=== PATIENT | male | born 1945 | race Caucasian/White ===

== ENCOUNTER 2017-07-20 00:39 | Day surgery (SDC) | payer OTHER, SELFPAY ==
[~2017-07-20 00:39] MED LIST: ? HTN MED; ALLERCLEAR10 MG PO; AMLO10 PO; ASPI81CH PO; ATOR40TA PO; CLARITIN5 MG PO; CYAN500 SL; Ceftriaxone2 G2 IV; Colace100 MG PO; Cyclobenzaprine5 MG PO; DIGO.25 PO; HYDACE5 PO; INCRUSE ELLI62.5 MCG; LAVAP17G PO; LISI5 PO; METO100ER PO; METO50ER PO; NAPR500 PO; NEBI5 PO; NITR.4SL SL; OMEP40CA12 PO; OXYACE5T PO; PANT40 PO; POLYETHYLENE GLY1 GM PO; Rocephin 1g1 G/50 ML; SENN187 PO; SULTRIDS PO; TORSE20 PO; TRAZ50 PO; VANCO 1.51.5 GM/150 IV; WARF2.5 PO
[2017-07-20] MEDS ORDERED: LISI5 PO (10:04)
[2018-07-07] MEDS ORDERED: LISI5 PO (16:19)
== END 2017-07-20 09:50 | disposition home or self-care (01) ==
LOC: ATC 00:39
DX: I95.9 Hypotension, unspecified (principal); I38 Endocarditis, valve unspecified; R53.1 Weakness; R50.9 Fever, unspecified; G47.30 Sleep apnea, unspecified; E66.01 Morbid (severe) obesity due to excess calories; I48.0 Paroxysmal atrial fibrillation; Z79.01 Long term (current) use of anticoagulants; M54.2 Cervicalgia; E78.5 Hyperlipidemia, unspecified; I10 Essential (primary) hypertension
CPT/HCPCS: 99211

== ENCOUNTER 2017-08-03 00:53 | Day surgery (SDC) | payer OTHER, SELFPAY ==
[2018-07-07] MEDS ORDERED: LISI5 PO (16:19)
== END 2017-08-03 10:10 | disposition home or self-care (01) ==
LOC: ATC 00:53
DX: Z45.2 Encounter for adjustment and management of vascular access device (principal); I38 Endocarditis, valve unspecified; I10 Essential (primary) hypertension
CPT/HCPCS: 99211

== ENCOUNTER 2017-08-10 00:27 | Day surgery (SDC) | payer OTHER, SELFPAY ==
[2017-08-10] MEDS ORDERED: METO50ER PO (10:39)
[2018-07-07] MEDS ORDERED: LISI5 PO (16:19)
== END 2017-08-10 10:16 | disposition home or self-care (01) ==
LOC: ATC 00:27
DX: Z45.2 Encounter for adjustment and management of vascular access device (principal); I10 Essential (primary) hypertension; I38 Endocarditis, valve unspecified; E78.5 Hyperlipidemia, unspecified; G47.33 Obstructive sleep apnea (adult) (pediatric); E66.01 Morbid (severe) obesity due to excess calories; I48.0 Paroxysmal atrial fibrillation
CPT/HCPCS: 99211

== ENCOUNTER 2017-11-30 13:38 | Inpatient (IN) | payer OTHER, SELFPAY ==
[~2017-11-30] VITALS: Ht 185.4 cm; Wt 159.7 kg
[2017-11-30] MEDS ORDERED: AMLO5 PO (13:56)
[2017-11-30 14:17] LABS: BASOPHILS ABSOLUTE AUTO 0.05 K/mm3 (0.00-0.23); BASOPHILS PERCENT AUTO 1 % (0-2); EOSINOPHILS ABSOLUTE AUTO 0.07 K/mm3 (0.00-0.68); EOSINOPHILS PERCENT AUTO 1 % (0-6); Hematocrit 38.2 % (37.0-53.0); Hemoglobin 12.2 g/dL (13.5-17.5); IMMATURE GRAN ABSOLUTE AUTO 0.07 K/mm3 (0.00-0.10); IMMATURE GRAN PERCENT AUTO 1 % (0-1); LYMPHOCYTES ABSOLUTE AUTO 2.09 K/mm3 (0.84-5.20); LYMPHOCYTES PERCENT AUTO 21 % (21-46); MONOCYTES ABSOLUTE AUTO 0.76 K/mm3 (0.16-1.47); MONOCYTES PERCENT AUTO 8 % (4-13); Mean Corpuscular HGB 29.5 pg (26.0-34.0); Mean Corpuscular HGB Conc 31.9 g/dL (31.5-36.5); Mean Corpuscular Volume 93 fL (80-100); Mean Platelet Volume 10.3 fL (9.1-12.4); NEUTROPHILS ABSOLUTE AUTO 6.77 K/mm3 (1.96-9.15); NEUTROPHILS PERCENT AUTO 69 % (41-73); Platelet Count 273 K/mm3 (150-400); RDW Coefficient Variation 13.9 % (11.7-14.2); RDW Standard Deviation 47.3 fL (35.1-46.3); Red Blood Cell Count 4.13 M/mm3 (4.30-5.90); White Blood Cell Count 9.81 K/mm3 (4.00-11.30)
[2017-11-30 14:30] LABS: Anion Gap 5 mmol/L (6-16); Blood Urea Nitrogen 17 mg/dL (8-24); CO2, Blood 24 mmol/L (21-32); Chloride, Blood 110 mmol/L (98-108); Creatinine, Blood 1.06 mg/dL (0.60-1.20); Glomerular Filtration Rate >60 (60-); Glucose, Blood 109 mg/dL (70-99); Magnesium, Blood 2.3 mg/dL (1.6-2.4); Potassium, Blood 5.1 mmol/L (3.5-5.5); Sodium, Blood 139 mmol/L (136-145)
[2017-11-30 16:03] LABS: Troponin I <0.015 ng/mL (0.000-0.040)
[2017-11-30 16:07] LABS: International Normalized Ratio 1.65; Prothrombin Time Results 17.4 Sec (9.7-11.5)
[2017-11-30] MEDS ORDERED: TORSE20 PO (22:10)
[2017-11-30] MEDS ORDERED: ALBU2.5V5 NEB (22:12)
[2017-11-30] MEDS ORDERED: ALBU90OI6 INH (22:13)
[2017-11-30] MEDS ORDERED: Hair, Skin & N1 EACH PO (22:13)
[2017-12-01 04:38] LABS: BASOPHILS ABSOLUTE AUTO 0.06 K/mm3 (0.00-0.23); BASOPHILS PERCENT AUTO 1 % (0-2); EOSINOPHILS ABSOLUTE AUTO 0.08 K/mm3 (0.00-0.68); EOSINOPHILS PERCENT AUTO 1 % (0-6); Hematocrit 35.8 % (37.0-53.0); Hemoglobin 11.6 g/dL (13.5-17.5); IMMATURE GRAN ABSOLUTE AUTO 0.09 K/mm3 (0.00-0.10); IMMATURE GRAN PERCENT AUTO 1 % (0-1); LYMPHOCYTES ABSOLUTE AUTO 2.54 K/mm3 (0.84-5.20); LYMPHOCYTES PERCENT AUTO 23 % (21-46); MONOCYTES ABSOLUTE AUTO 0.96 K/mm3 (0.16-1.47); MONOCYTES PERCENT AUTO 9 % (4-13); Mean Corpuscular HGB 29.7 pg (26.0-34.0); Mean Corpuscular HGB Conc 32.4 g/dL (31.5-36.5); Mean Corpuscular Volume 92 fL (80-100); Mean Platelet Volume 10.1 fL (9.1-12.4); NEUTROPHILS ABSOLUTE AUTO 7.51 K/mm3 (1.96-9.15); NEUTROPHILS PERCENT AUTO 67 % (41-73); Platelet Count 278 K/mm3 (150-400); RDW Coefficient Variation 13.9 % (11.7-14.2); RDW Standard Deviation 46.6 fL (35.1-46.3); White Blood Cell Count 11.24 K/mm3 (4.00-11.30)
[2017-12-01 04:53] LABS: International Normalized Ratio 1.65; Prothrombin Time Results 17.4 Sec (9.7-11.5)
[2017-12-01 04:57] LABS: Albumin, Blood 3.2 g/dL (3.4-5.0); Anion Gap 6 mmol/L (6-16); Blood Urea Nitrogen 17 mg/dL (8-24); Bun/Creatinine Ratio 15.9 (12.0-20.0); CO2, Blood 27 mmol/L (21-32); Calcium, Blood 8.7 mg/dL (8.5-10.1); Chloride, Blood 109 mmol/L (98-108); Creatinine, Blood 1.07 mg/dL (0.60-1.20); Glomerular Filtration Rate >60 (60-); Glucose, Blood 84 mg/dL (70-99); Potassium, Blood 3.9 mmol/L (3.5-5.5); Sodium, Blood 142 mmol/L (136-145)
[2017-12-02] MEDS ORDERED: Coumadin6 MG PO (19:24)
[2017-12-02] MEDS ORDERED: TRAZ50 PO (20:46)
== END 2017-12-01 12:55 | disposition home or self-care (01) | DRG 309 ==
LOC: ER 13:38 → PCU 15:52
PROVIDERS: Emergency Medicine; Family Medicine
DX: I48.91 Unspecified atrial fibrillation (principal); Z68.42 Body mass index [BMI] 45.0-49.9, adult; I25.10 Atherosclerotic heart disease of native coronary artery without angina pectoris; I10 Essential (primary) hypertension; E78.5 Hyperlipidemia, unspecified; G47.33 Obstructive sleep apnea (adult) (pediatric); E66.01 Morbid (severe) obesity due to excess calories; J44.9 Chronic obstructive pulmonary disease, unspecified; K21.9 Gastro-esophageal reflux disease without esophagitis; M17.0 Bilateral primary osteoarthritis of knee; M19.012 Primary osteoarthritis, left shoulder; M19.011 Primary osteoarthritis, right shoulder; Z79.01 Long term (current) use of anticoagulants; Z79.82 Long term (current) use of aspirin; Z95.1 Presence of aortocoronary bypass graft; Z95.3 Presence of xenogenic heart valve; Z87.891 Personal history of nicotine dependence; Z79.899 Other long term (current) drug therapy; Z88.0 Allergy status to penicillin
CPT/HCPCS: 36415; 71046; 80048; 80069; 83735; 84484; 85025; 85610; 93005; 93010; 94640; 94760; 96365; 96366; 96375; 99285

== ENCOUNTER 2017-12-02 19:03 | Inpatient (IN) | payer OTHER, SELFPAY ==
[~2017-12-02] VITALS: Ht 185.4 cm; Wt 150.6 kg
[~2017-12-02 19:03] MED LIST changes: +ALBU2.5V5 NEB; +ALBU90OI6 INH; +AMLO5 PO; +Hair, Skin & N1 EACH PO
[2017-12-02] MEDS ORDERED: Coumadin6 MG PO (19:24)
[2017-12-02 19:37] LABS: BASOPHILS ABSOLUTE AUTO 0.05 K/mm3 (0.00-0.23); BASOPHILS PERCENT AUTO 0 % (0-2); EOSINOPHILS ABSOLUTE AUTO 0.07 K/mm3 (0.00-0.68); EOSINOPHILS PERCENT AUTO 1 % (0-6); Hematocrit 37.8 % (37.0-53.0); Hemoglobin 12.2 g/dL (13.5-17.5); IMMATURE GRAN ABSOLUTE AUTO 0.08 K/mm3 (0.00-0.10); IMMATURE GRAN PERCENT AUTO 1 % (0-1); LYMPHOCYTES ABSOLUTE AUTO 2.76 K/mm3 (0.84-5.20); LYMPHOCYTES PERCENT AUTO 24 % (21-46); MONOCYTES ABSOLUTE AUTO 1.02 K/mm3 (0.16-1.47); MONOCYTES PERCENT AUTO 9 % (4-13); Mean Corpuscular HGB Conc 32.3 g/dL (31.5-36.5); Mean Corpuscular Volume 93 fL (80-100); Mean Platelet Volume 9.8 fL (9.1-12.4); NEUTROPHILS ABSOLUTE AUTO 7.67 K/mm3 (1.96-9.15); NEUTROPHILS PERCENT AUTO 66 % (41-73); Platelet Count 295 K/mm3 (150-400); RDW Coefficient Variation 13.8 % (11.7-14.2); Red Blood Cell Count 4.06 M/mm3 (4.30-5.90); White Blood Cell Count 11.65 K/mm3 (4.00-11.30)
[2017-12-02 19:48] LABS: Alanine Aminotransfer (ALT/SGP 28 U/L (12-78); Albumin, Blood 3.5 g/dL (3.4-5.0); Albumin/Globulin Ratio 0.8 (0.8-1.8); Alk Phos 103 U/L (50-136); Anion Gap 8 mmol/L (6-16); Aspartate Aminotrans (AST/SGOT 31 U/L (12-37); Bilirubin, Total 0.4 mg/dL (0.1-1.0); Blood Urea Nitrogen 14 mg/dL (8-24); Bun/Creatinine Ratio 13.6 (12.0-20.0); CO2, Blood 24 mmol/L (21-32); Calcium, Blood 8.4 mg/dL (8.5-10.1); Chloride, Blood 109 mmol/L (98-108); Creatinine, Blood 1.03 mg/dL (0.60-1.20); Globulin, Blood 4.4 g/dL (2.2-4.0); Glomerular Filtration Rate >60 (60-); Glucose, Blood 123 mg/dL (70-99); Magnesium, Blood 2.2 mg/dL (1.6-2.4); Potassium, Blood 4.1 mmol/L (3.5-5.5); Sodium, Blood 141 mmol/L (136-145); Total Protein, Blood 7.9 g/dL (6.4-8.2)
[2017-12-02 19:49] LABS: International Normalized Ratio 1.63; Prothrombin Time Results 17.2 Sec (9.7-11.5)
[2017-12-02] MEDS ORDERED: TRAZ50 PO (20:46)
[2017-12-02 22:25] LABS: Troponin I <0.015 ng/mL (0.000-0.040)
[2017-12-03 04:36] LABS: Anion Gap 7 mmol/L (6-16); Blood Urea Nitrogen 13 mg/dL (8-24); Bun/Creatinine Ratio 12.6 (12.0-20.0); CO2, Blood 26 mmol/L (21-32); Calcium, Blood 8.7 mg/dL (8.5-10.1); Chloride, Blood 108 mmol/L (98-108); Creatinine, Blood 1.03 mg/dL (0.60-1.20); Glomerular Filtration Rate >60 (60-); Glucose, Blood 96 mg/dL (70-99); Potassium, Blood 4.2 mmol/L (3.5-5.5); Sodium, Blood 141 mmol/L (136-145); Troponin I <0.015 ng/mL (0.000-0.040)
[2017-12-03 11:23] LABS: International Normalized Ratio 1.8; Prothrombin Time Results 19.1 Sec (9.7-11.5)
[2017-12-04 04:19] LABS: BASOPHILS ABSOLUTE AUTO 0.07 K/mm3 (0.00-0.23); BASOPHILS PERCENT AUTO 1 % (0-2); EOSINOPHILS ABSOLUTE AUTO 0.09 K/mm3 (0.00-0.68); EOSINOPHILS PERCENT AUTO 1 % (0-6); Hematocrit 37.3 % (37.0-53.0); Hemoglobin 12.2 g/dL (13.5-17.5); IMMATURE GRAN ABSOLUTE AUTO 0.08 K/mm3 (0.00-0.10); IMMATURE GRAN PERCENT AUTO 1 % (0-1); LYMPHOCYTES ABSOLUTE AUTO 2.98 K/mm3 (0.84-5.20); LYMPHOCYTES PERCENT AUTO 27 % (21-46); MONOCYTES ABSOLUTE AUTO 1.05 K/mm3 (0.16-1.47); MONOCYTES PERCENT AUTO 9 % (4-13); Mean Corpuscular HGB Conc 32.7 g/dL (31.5-36.5); Mean Corpuscular Volume 92 fL (80-100); Mean Platelet Volume 9.6 fL (9.1-12.4); NEUTROPHILS ABSOLUTE AUTO 6.89 K/mm3 (1.96-9.15); NEUTROPHILS PERCENT AUTO 62 % (41-73); Platelet Count 311 K/mm3 (150-400); RDW Coefficient Variation 13.7 % (11.7-14.2); RDW Standard Deviation 46.9 fL (35.1-46.3); Red Blood Cell Count 4.06 M/mm3 (4.30-5.90); White Blood Cell Count 11.16 K/mm3 (4.00-11.30)
[2017-12-04 04:33] LABS: International Normalized Ratio 2.02; Prothrombin Time Results 21.5 Sec (9.7-11.5)
[2017-12-04 04:37] LABS: Bun/Creatinine Ratio 14.1 (12.0-20.0); Creatinine, Blood 1.63 mg/dL (0.60-1.20); Potassium, Blood 3.6 mmol/L (3.5-5.5)
[2017-12-05 04:27] LABS: International Normalized Ratio 2.05; Prothrombin Time Results 21.8 Sec (9.7-11.5)
[2017-12-06 06:25] LABS: International Normalized Ratio 2.28; Prothrombin Time Results 24.3 Sec (9.7-11.5)
[2017-12-06 09:34] LABS: BASOPHILS ABSOLUTE AUTO 0.04 K/mm3 (0.00-0.23); BASOPHILS PERCENT AUTO 1 % (0-2); EOSINOPHILS ABSOLUTE AUTO 0.09 K/mm3 (0.00-0.68); EOSINOPHILS PERCENT AUTO 1 % (0-6); Hematocrit 36.8 % (37.0-53.0); Hemoglobin 11.9 g/dL (13.5-17.5); IMMATURE GRAN ABSOLUTE AUTO 0.06 K/mm3 (0.00-0.10); IMMATURE GRAN PERCENT AUTO 1 % (0-1); LYMPHOCYTES ABSOLUTE AUTO 1.96 K/mm3 (0.84-5.20); LYMPHOCYTES PERCENT AUTO 23 % (21-46); MONOCYTES ABSOLUTE AUTO 0.71 K/mm3 (0.16-1.47); MONOCYTES PERCENT AUTO 8 % (4-13); Mean Corpuscular HGB 30.4 pg (26.0-34.0); Mean Corpuscular HGB Conc 32.3 g/dL (31.5-36.5); Mean Corpuscular Volume 94 fL (80-100); Mean Platelet Volume 9.8 fL (9.1-12.4); NEUTROPHILS PERCENT AUTO 67 % (41-73); Platelet Count 319 K/mm3 (150-400); RDW Coefficient Variation 13.5 % (11.7-14.2); RDW Standard Deviation 46.4 fL (35.1-46.3); Red Blood Cell Count 3.92 M/mm3 (4.30-5.90); White Blood Cell Count 8.56 K/mm3 (4.00-11.30)
[2017-12-06 09:38] LABS: Anion Gap 5 mmol/L (6-16); Blood Urea Nitrogen 20 mg/dL (8-24); CO2, Blood 29 mmol/L (21-32); Calcium, Blood 9.3 mg/dL (8.5-10.1); Chloride, Blood 105 mmol/L (98-108); Creatinine, Blood 1.11 mg/dL (0.60-1.20); Glomerular Filtration Rate >60 (60-); Glucose, Blood 91 mg/dL (70-99); Potassium, Blood 4.6 mmol/L (3.5-5.5); Sodium, Blood 139 mmol/L (136-145)
[2017-12-06] MEDS ORDERED: DILT120 PO (13:58)
== END 2017-12-06 15:00 | disposition home or self-care (01) | DRG 309 ==
LOC: ER 19:03 → PCU 19:04 → ICUE 19:04 → PCU 12-04 17:40
PROVIDERS: Emergency Medicine; Family Medicine; Nurse Practitioner Acute Care
DX: I48.91 Unspecified atrial fibrillation (principal); Z68.41 Body mass index [BMI] 40.0-44.9, adult; I95.9 Hypotension, unspecified; G47.33 Obstructive sleep apnea (adult) (pediatric); J44.9 Chronic obstructive pulmonary disease, unspecified; E66.01 Morbid (severe) obesity due to excess calories; I10 Essential (primary) hypertension; I25.10 Atherosclerotic heart disease of native coronary artery without angina pectoris; E78.5 Hyperlipidemia, unspecified; M19.90 Unspecified osteoarthritis, unspecified site; Z79.01 Long term (current) use of anticoagulants; Z95.3 Presence of xenogenic heart valve; Z95.1 Presence of aortocoronary bypass graft; Z87.891 Personal history of nicotine dependence
CPT/HCPCS: 36415; 71046; 80048; 80053; 83735; 83880; 84484; 85025; 85610; 93005; 93010; 94640; 94660; 94760; 94761; 94762; 96365; 99285; J2405; J7030; J7042

== ENCOUNTER 2017-12-10 20:53 | Inpatient (IN) | payer OTHER, SELFPAY ==
[~2017-12-10] VITALS: Ht 182.9 cm; Wt 146.4 kg
[~2017-12-10 20:53] MED LIST changes: +Coumadin6 MG PO; +DILT120 PO
[2017-12-10 21:05] LABS: Calcium, Ionized (POC) 1.12 mmol/L (1.10-1.46); Chloride (POC) 102 mmol/L (98-108); Creatinine (POC) 1.3 mg/dL (0.8-1.3); Glucose (ISTAT POC) 141 mg/dL (70-99); Hemoglobin (POC) 13.6 g/dL (13.5-17.5); Sodium (POC) 138 mmol/L (135-148); Total CO2 (POC) 25 mmol/L (21-32)
[2017-12-10 21:13] LABS: BASOPHILS ABSOLUTE AUTO 0.08 K/mm3 (0.00-0.23); BASOPHILS PERCENT AUTO 1 % (0-2); EOSINOPHILS PERCENT AUTO 1 % (0-6); Hematocrit 39.3 % (37.0-53.0); Hemoglobin 12.8 g/dL (13.5-17.5); IMMATURE GRAN ABSOLUTE AUTO 0.09 K/mm3 (0.00-0.10); IMMATURE GRAN PERCENT AUTO 1 % (0-1); LYMPHOCYTES ABSOLUTE AUTO 3.22 K/mm3 (0.84-5.20); LYMPHOCYTES PERCENT AUTO 26 % (21-46); MONOCYTES ABSOLUTE AUTO 0.97 K/mm3 (0.16-1.47); MONOCYTES PERCENT AUTO 8 % (4-13); Mean Corpuscular HGB 30.1 pg (26.0-34.0); Mean Corpuscular HGB Conc 32.6 g/dL (31.5-36.5); Mean Corpuscular Volume 93 fL (80-100); Mean Platelet Volume 9.5 fL (9.1-12.4); NEUTROPHILS PERCENT AUTO 64 % (41-73); Platelet Count 371 K/mm3 (150-400); RDW Coefficient Variation 13.3 % (11.7-14.2); RDW Standard Deviation 45.1 fL (35.1-46.3); Red Blood Cell Count 4.25 M/mm3 (4.30-5.90); White Blood Cell Count 12.36 K/mm3 (4.00-11.30)
[2017-12-10 21:27] LABS: International Normalized Ratio 2.32; Prothrombin Time Results 24.8 Sec (9.7-11.5)
[2017-12-10 21:33] LABS: Alanine Aminotransfer (ALT/SGP 24 U/L (12-78); Albumin, Blood 3.3 g/dL (3.4-5.0); Albumin/Globulin Ratio 0.7 (0.8-1.8); Alk Phos 100 U/L (50-136); Anion Gap 10 mmol/L (6-16); Aspartate Aminotrans (AST/SGOT 16 U/L (12-37); Bilirubin, Total 0.3 mg/dL (0.1-1.0); Blood Urea Nitrogen 24 mg/dL (8-24); Bun/Creatinine Ratio 19.8 (12.0-20.0); CO2, Blood 24 mmol/L (21-32); Calcium, Blood 8.9 mg/dL (8.5-10.1); Chloride, Blood 104 mmol/L (98-108); Creatinine, Blood 1.21 mg/dL (0.60-1.20); Globulin, Blood 4.5 g/dL (2.2-4.0); Glomerular Filtration Rate >60 (60-); Glucose, Blood 137 mg/dL (70-99); Magnesium, Blood 2.5 mg/dL (1.6-2.4); Sodium, Blood 138 mmol/L (136-145); Total Protein, Blood 7.8 g/dL (6.4-8.2); Troponin I 0.017 ng/mL (0.000-0.040)
[2017-12-11 06:40] LABS: International Normalized Ratio 2.33; Prothrombin Time Results 24.9 Sec (9.7-11.5)
[2017-12-12 04:41] LABS: International Normalized Ratio 2.44; Prothrombin Time Results 26.1 Sec (9.7-11.5)
[2017-12-13 04:36] LABS: International Normalized Ratio 2.2; Prothrombin Time Results 23.4 Sec (9.7-11.5)
[2017-12-14 04:05] LABS: International Normalized Ratio 2.3; Prothrombin Time Results 24.5 Sec (9.7-11.5)
== END 2017-12-14 17:41 | disposition short-term general hospital (02) | DRG 310 ==
LOC: ER 20:53 → PCU 20:54 → ER 22:40 → PCU 22:40
PROVIDERS: Hospitalist; Internal Medicine
DX: I47.1 Supraventricular tachycardia (principal); I48.91 Unspecified atrial fibrillation; I10 Essential (primary) hypertension; J44.9 Chronic obstructive pulmonary disease, unspecified; Z86.718 Personal history of other venous thrombosis and embolism; Z79.82 Long term (current) use of aspirin
CPT/HCPCS: 36415; 71045; 80047; 80053; 83735; 83880; 84484; 85014; 85025; 85610; 93005; 93010; 94640; 94660; 94760; 96360; 99285; G0378; J0153; J0282; J7030; J7070

== ENCOUNTER 2019-11-08 19:37 | Emergency (ER) | payer OTHER ==
[~2019-11-08] VITALS: Ht 185.4 cm; Wt 149.7 kg
[2019-11-08 20:05] LABS: BASOPHILS ABSOLUTE AUTO 0.06 K/mm3 (0.00-0.23); BASOPHILS PERCENT AUTO 1 % (0-2); EOSINOPHILS ABSOLUTE AUTO 0.09 K/mm3 (0.00-0.68); EOSINOPHILS PERCENT AUTO 1 % (0-6); Hemoglobin 13.2 g/dL (13.5-17.5); IMMATURE GRAN ABSOLUTE AUTO 0.14 K/mm3 (0.00-0.10); IMMATURE GRAN PERCENT AUTO 1 % (0-1); LYMPHOCYTES ABSOLUTE AUTO 2.99 K/mm3 (0.84-5.20); LYMPHOCYTES PERCENT AUTO 24 % (21-46); MONOCYTES ABSOLUTE AUTO 0.88 K/mm3 (0.16-1.47); MONOCYTES PERCENT AUTO 7 % (4-13); Mean Corpuscular HGB 31.2 pg (26.0-34.0); Mean Corpuscular HGB Conc 32.2 g/dL (31.5-36.5); Mean Corpuscular Volume 97 fL (80-100); NEUTROPHILS ABSOLUTE AUTO 8.31 K/mm3 (1.96-9.15); NEUTROPHILS PERCENT AUTO 67 % (41-73); Platelet Count 286 K/mm3 (150-400); RDW Coefficient Variation 14.1 % (11.7-14.2); RDW Standard Deviation 50.2 fL (35.1-46.3); Red Blood Cell Count 4.23 M/mm3 (4.30-5.90); White Blood Cell Count 12.47 K/mm3 (4.00-11.30)
[2019-11-08 20:19] LABS: International Normalized Ratio 2.1; Prothrombin Time Results 21.5 Sec (9.7-11.5)
== END 2019-11-08 21:25 | disposition home or self-care (01) ==
LOC: ER 19:37
PROVIDERS: Emergency Medicine
DX: R04.0 Epistaxis (principal); D68.9 Coagulation defect, unspecified; I25.10 Atherosclerotic heart disease of native coronary artery without angina pectoris; I48.91 Unspecified atrial fibrillation; E11.9 Type 2 diabetes mellitus without complications; J44.9 Chronic obstructive pulmonary disease, unspecified; G47.33 Obstructive sleep apnea (adult) (pediatric); E66.9 Obesity, unspecified; Z88.0 Allergy status to penicillin; Z79.899 Other long term (current) drug therapy; Z79.82 Long term (current) use of aspirin; Z79.51 Long term (current) use of inhaled steroids; Z87.891 Personal history of nicotine dependence; Z68.41 Body mass index [BMI] 40.0-44.9, adult
CPT/HCPCS: 30901; 36415; 85025; 85610; 99283-25

== ENCOUNTER 2019-11-11 13:23 | Emergency (ER) | payer OTHER ==
[~2019-11-11] VITALS: Ht 185.4 cm; Wt 149.7 kg
[2019-11-11 14:19] LABS: BASOPHILS ABSOLUTE AUTO 0.07 K/mm3 (0.00-0.23); BASOPHILS PERCENT AUTO 1 % (0-2); EOSINOPHILS ABSOLUTE AUTO 0.07 K/mm3 (0.00-0.68); EOSINOPHILS PERCENT AUTO 1 % (0-6); Hemoglobin 13.6 g/dL (13.5-17.5); IMMATURE GRAN ABSOLUTE AUTO 0.14 K/mm3 (0.00-0.10); IMMATURE GRAN PERCENT AUTO 1 % (0-1); LYMPHOCYTES ABSOLUTE AUTO 2.26 K/mm3 (0.84-5.20); LYMPHOCYTES PERCENT AUTO 18 % (21-46); MONOCYTES ABSOLUTE AUTO 0.97 K/mm3 (0.16-1.47); MONOCYTES PERCENT AUTO 8 % (4-13); Mean Corpuscular HGB 31.1 pg (26.0-34.0); Mean Corpuscular HGB Conc 32.4 g/dL (31.5-36.5); Mean Corpuscular Volume 96 fL (80-100); Mean Platelet Volume 10.1 fL (9.1-12.4); NEUTROPHILS ABSOLUTE AUTO 9.04 K/mm3 (1.96-9.15); NEUTROPHILS PERCENT AUTO 72 % (41-73); Platelet Count 289 K/mm3 (150-400); RDW Coefficient Variation 14.2 % (11.7-14.2); RDW Standard Deviation 50.4 fL (35.1-46.3); Red Blood Cell Count 4.38 M/mm3 (4.30-5.90); White Blood Cell Count 12.55 K/mm3 (4.00-11.30)
[2019-11-11 14:35] LABS: International Normalized Ratio 2.08; Prothrombin Time Results 21.4 Sec (9.7-11.5)
[2019-11-11] MEDS ORDERED: Cleocin HCl300 MG PO (15:22)
== END 2019-11-11 16:00 | disposition home or self-care (01) ==
LOC: ER 13:23
PROVIDERS: Physician Assistant
DX: R04.0 Epistaxis (principal); I48.91 Unspecified atrial fibrillation; E11.9 Type 2 diabetes mellitus without complications; J44.9 Chronic obstructive pulmonary disease, unspecified; I25.810 Atherosclerosis of coronary artery bypass graft(s) without angina pectoris; G47.33 Obstructive sleep apnea (adult) (pediatric); Z87.891 Personal history of nicotine dependence; Z88.0 Allergy status to penicillin; Z79.82 Long term (current) use of aspirin; Z79.899 Other long term (current) drug therapy; Z79.01 Long term (current) use of anticoagulants
CPT/HCPCS: 30901; 85025; 85610; 99283-25

== ENCOUNTER 2020-06-16 20:38 | Emergency (ER) | payer OTHER ==
[~2020-06-16] VITALS: Ht 185.4 cm; Wt 151.9 kg
[~2020-06-16 20:38] MED LIST changes: +ALLO100 PO; +ANORO ELLIPTA1 EAC1 INH; +CLIN300 PO; +Cleocin HCl300 MG PO; +INDO50 PO; +LIDEX TOP; +Melatonin1 MG/4 ML PO; +NITROGLYCERIN1 EACH TOP; +RANOLAZINE ER500 M1 PO; +Triamcinolone A15 G2 TOP
[2020-06-17 00:09] LABS: BASOPHILS ABSOLUTE AUTO 0.07 K/mm3 (0.00-0.23); BASOPHILS PERCENT AUTO 1 % (0-2); EOSINOPHILS ABSOLUTE AUTO 0.07 K/mm3 (0.00-0.68); EOSINOPHILS PERCENT AUTO 1 % (0-6); Hematocrit 39.7 % (37.0-53.0); Hemoglobin 12.9 g/dL (13.5-17.5); IMMATURE GRAN ABSOLUTE AUTO 0.18 K/mm3 (0.00-0.10); IMMATURE GRAN PERCENT AUTO 1 % (0-1); LYMPHOCYTES ABSOLUTE AUTO 2.75 K/mm3 (0.84-5.20); LYMPHOCYTES PERCENT AUTO 20 % (21-46); MONOCYTES ABSOLUTE AUTO 1.33 K/mm3 (0.16-1.47); MONOCYTES PERCENT AUTO 10 % (4-13); Mean Corpuscular HGB 31.3 pg (26.0-34.0); Mean Corpuscular HGB Conc 32.5 g/dL (31.5-36.5); Mean Corpuscular Volume 96 fL (80-100); NEUTROPHILS PERCENT AUTO 68 % (41-73); Platelet Count 291 K/mm3 (150-400); RDW Coefficient Variation 14.2 % (11.7-14.2); RDW Standard Deviation 50.5 fL (35.1-46.3); Red Blood Cell Count 4.12 M/mm3 (4.30-5.90)
[2020-06-17 00:23] LABS: International Normalized Ratio 2.41; Prothrombin Time Results 24.5 Sec (9.7-11.5)
[2020-06-17 00:26] LABS: Alanine Aminotransfer (ALT/SGP 26 U/L (12-78); Albumin, Blood 3.6 g/dL (3.4-5.0); Albumin/Globulin Ratio 0.9 (0.8-1.8); Alk Phos 96 U/L (50-136); Anion Gap 5 mmol/L (6-16); Aspartate Aminotrans (AST/SGOT 21 U/L (12-37); Bilirubin, Total 0.3 mg/dL (0.1-1.0); Blood Urea Nitrogen 22 mg/dL (8-24); CO2, Blood 25 mmol/L (21-32); Calcium, Blood 9.1 mg/dL (8.5-10.1); Chloride, Blood 110 mmol/L (98-108); Creatinine, Blood 1.05 mg/dL (0.60-1.20); Glomerular Filtration Rate >60 (60-); Glucose, Blood 106 mg/dL (70-99); Potassium, Blood 4.5 mmol/L (3.5-5.5); Sodium, Blood 140 mmol/L (136-145); Total Protein, Blood 7.6 g/dL (6.4-8.2)
[2020-06-17] MEDS ORDERED: DOXYCYCLINE HY100 M1 PO (01:36)
== END 2020-06-17 01:38 | disposition home or self-care (01) ==
LOC: ER 20:38
PROVIDERS: Emergency Medicine
DX: R04.0 Epistaxis (principal); J44.9 Chronic obstructive pulmonary disease, unspecified; I10 Essential (primary) hypertension; I25.810 Atherosclerosis of coronary artery bypass graft(s) without angina pectoris; Z79.01 Long term (current) use of anticoagulants; Z88.0 Allergy status to penicillin; Z95.1 Presence of aortocoronary bypass graft; Z79.82 Long term (current) use of aspirin; Z79.899 Other long term (current) drug therapy
CPT/HCPCS: 30901; 80053; 85025; 85610; 99283-25

== ENCOUNTER 2021-09-06 09:02 | Day surgery (SDC) | payer OTHER ==
[~2021-09-06] VITALS: Ht 185.4 cm; Wt 158.5 kg
[~2021-09-06 09:02] MED LIST changes: +DOXYCYCLINE HY100 M1 PO
[2021-09-06] MEDS ORDERED: MIRALAX17 GM (09:45)
== END 2021-09-06 11:40 | disposition home or self-care (01) ==
LOC: ORSCSDS 09:02
PROVIDERS: Surgery
PROC: 0DBM8ZX Excision of Descending Colon, Via Natural or Artificial Opening Endoscopic, Diagnostic (ICD-10-PCS; principal; 2021-09-06 10:30)
DX: Z12.11 Encounter for screening for malignant neoplasm of colon (principal); D12.4 Benign neoplasm of descending colon; K59.09 Other constipation; I48.91 Unspecified atrial fibrillation; I10 Essential (primary) hypertension; G47.33 Obstructive sleep apnea (adult) (pediatric); J44.9 Chronic obstructive pulmonary disease, unspecified; I25.10 Atherosclerotic heart disease of native coronary artery without angina pectoris; E78.00 Pure hypercholesterolemia, unspecified; Z87.891 Personal history of nicotine dependence; E66.01 Morbid (severe) obesity due to excess calories; Z68.42 Body mass index [BMI] 45.0-49.9, adult; Z79.01 Long term (current) use of anticoagulants; Z79.82 Long term (current) use of aspirin; Z79.899 Other long term (current) drug therapy
CPT/HCPCS: 88305; J2250; J2704; J7120

== ENCOUNTER → 2021-09-13 | Outpatient (CLI) | payer OTHER ==
[~2021-09-13] MED LIST changes: +MIRALAX17 GM
== END | disposition home or self-care (01) ==
LOC: LAB SHORT 10:35
DX: L08.9 Local infection of the skin and subcutaneous tissue, unspecified (principal)
CPT/HCPCS: 87070; 87077; 87147; 87186

== ENCOUNTER 2022-03-19 17:38 | Emergency (ER) | payer OTHER ==
[~2022-03-19] VITALS: Ht 185.4 cm; Wt 158.8 kg
[2022-03-19] MEDS ORDERED: CEPH500 PO (18:46)
== END 2022-03-19 18:55 | disposition home or self-care (01) ==
LOC: ER 17:38
DX: S91.332A Puncture wound without foreign body, left foot, initial encounter (principal); I25.10 Atherosclerotic heart disease of native coronary artery without angina pectoris; J44.9 Chronic obstructive pulmonary disease, unspecified; I10 Essential (primary) hypertension; W45.8XXA Other foreign body or object entering through skin, initial encounter; Z88.0 Allergy status to penicillin; Z79.82 Long term (current) use of aspirin; Z79.899 Other long term (current) drug therapy; Z79.01 Long term (current) use of anticoagulants; Z95.1 Presence of aortocoronary bypass graft; Z87.891 Personal history of nicotine dependence
CPT/HCPCS: 90714

== ENCOUNTER 2022-06-30 02:13 | Inpatient (IN) | payer OTHER ==
[~2022-06-30] VITALS: Ht 185.4 cm; Wt 154.5 kg
[~2022-06-30 02:13] MED LIST changes: +CEPH500 PO; -CYAN500 SL; -Coumadin6 MG PO; -INCRUSE ELLI62.5 MCG; +MELATONIN1 MG PO; +METO25ER PO; -Melatonin1 MG/4 ML PO; +NITROGLYCERIN0.4 M1 SL; -NITROGLYCERIN1 EACH TOP; +Prinivil10 MG PO; +VITAMIN B-121000 MCG PO; +WARF4 PO
[2022-06-30 03:02] LABS: Hematocrit 36.1 % (37.0-53.0); Hemoglobin 11.8 g/dL (13.5-17.5); Mean Corpuscular HGB 32.4 pg (26.0-34.0); Mean Corpuscular HGB Conc 32.7 g/dL (31.5-36.5); Mean Corpuscular Volume 99 fL (80-100); Mean Platelet Volume 9.8 fL (9.1-12.4); Platelet Count 221 K/mm3 (150-400); RDW Coefficient Variation 14.8 % (11.7-14.2); RDW Standard Deviation 54.8 fL (35.1-46.3); Red Blood Cell Count 3.64 M/mm3 (4.30-5.90); White Blood Cell Count 27.82 K/mm3 (4.00-11.30)
[2022-06-30 03:11] LABS: Influenza A, PCR NEGATIVE (NEGATIVE); Influenza B, PCR NEGATIVE (NEGATIVE); Resp Syncytial Virus, PCR NEGATIVE (NEGATIVE)
[2022-06-30 03:13] LABS: Albumin, Blood 3.2 g/dL (3.4-5.0); Albumin/Globulin Ratio 0.7 (0.8-1.8); Bilirubin, Total 1.3 mg/dL (0.1-1.0); Bun/Creatinine Ratio 23.5 (12.0-20.0); Creatinine, Blood 1.02 mg/dL (0.60-1.20); Globulin, Blood 4.4 g/dL (2.2-4.0); Potassium, Blood 4.5 mmol/L (3.5-5.5); Total Protein, Blood 7.6 g/dL (6.4-8.2)
[2022-06-30 03:18] LABS: SARS-Cov-2 (COVID-19) PCR, MMC POSITIVE (NEGATIVE)
[2022-06-30 03:27] LABS: BAND PERCENT MAN 5 % (0-8); BASOPHILS PERCENT MAN 0 % (0-2); EOSINOPHILS ABSOLUTE MAN 0.27 K/mm3 (0.00-0.68); EOSINOPHILS PERCENT MAN 1 % (0-6); LYMPHOCYTES ABSOLUTE MAN 0.55 K/mm3 (0.84-5.20); LYMPHOCYTES PERCENT MAN 2 % (21-46); MONOCYTES ABSOLUTE MAN 6.95 K/mm3 (0.16-1.47); MONOCYTES PERCENT MAN 25 % (4-13); MYELOCYTE ABSOLUTE MAN 0.55 K/mm3 (0.00-0.00); MYELOCYTE PERCENT MAN 2 % (0-0); NEUTROPHILS ABSOLUTE MAN 19.47 K/mm3 (1.96-9.15); SEG NEUTROPHILS PERCENT MAN 65 % (41-73); TOTAL CELLS COUNTED 100
[2022-06-30 07:07] LABS: International Normalized Ratio 3.16; Prothrombin Time Results 30.8 Sec (9.7-11.5)
[2022-06-30] MEDS ORDERED: WARF5 PO (18:16)
--- NOTE | 2022-06-30 18:21 | NUR ---
PCU ADMIT / END OF SHIFT NOTE PT BROUGHT TO PCU-11 BY ELISSA FROM ER @ APPROX 0840. PT A&O X4, ABLE TO STAND AND AMBULATE FROM [facility] TO PCU BED W/ SBA. PT REPORTS USING FWW FOR LONG DISTANCES ONLY. PT VSS. MONITOR SHOWING AFIB, HR 130s-140s UPON ARRIVAL. PRN IV LOPRESSOR GIVEN PER EMAR W/ NO IMPROVEMENT. CALL TO MD GROVE TO UPDATE ON HR. W/ ORDER FOR ONE TIME 10MG IV CARDIZEM PUSH. PT HR DECREASE TO 100-110s. PT SPO2 > 92% ON 4L NC. BIPAP W/ 4L BLEED IN AT BEDSIDE. PT REPORTS COUGHING UP "THICK NASTY GREEN STUFF." NO EVENTS THIS SHIFT.
[2022-07-01 05:27] LABS: Hematocrit 35.2 % (37.0-53.0); Hemoglobin 11.3 g/dL (13.5-17.5); Mean Corpuscular HGB 32.6 pg (26.0-34.0); Mean Corpuscular HGB Conc 32.1 g/dL (31.5-36.5); Mean Corpuscular Volume 101 fL (80-100); Platelet Count 248 K/mm3 (150-400); RDW Standard Deviation 56.1 fL (35.1-46.3); Red Blood Cell Count 3.47 M/mm3 (4.30-5.90); White Blood Cell Count 28.71 K/mm3 (4.00-11.30)
[2022-07-01 05:43] LABS: International Normalized Ratio 3.64; Prothrombin Time Results 35.1 Sec (9.7-11.5)
[2022-07-01 05:52] LABS: Albumin, Blood 3.1 g/dL (3.4-5.0); Anion Gap 7 mmol/L (6-16); Blood Urea Nitrogen 28 mg/dL (8-24); Bun/Creatinine Ratio 31.6 (12.0-20.0); CO2, Blood 24 mmol/L (21-32); Calcium, Blood 9.2 mg/dL (8.5-10.1); Chloride, Blood 108 mmol/L (98-108); Creatinine, Blood 0.89 mg/dL (0.60-1.20); Glomerular Filtration Rate 89 (60-); Glucose, Blood 105 mg/dL (70-99); Potassium, Blood 4.8 mmol/L (3.5-5.5); Sodium, Blood 139 mmol/L (136-145)
--- NOTE | 2022-07-01 06:24 | NUR ---
SHIFT SUMMARY PT A&0 X4. PLEASANT AND COOPERATIVE WITH CARE. VSS; PT ON BIPAP MOST OF SHIFT WITH A FEW BREAKS IN BETWEEN. HR INCREASES WITH MOVEMENT INTO 130'S - 150'S. HR MOSTLY MAINTAINED IN 100'S TO 1 TEENS. AT END OF SHIFT, PT MAINTAINING ABOVE 120. 5 MG LOPRESSOR PUSH GIVEN PER EMAR. BP STABLE THROUGHOUT SHIFT. PT REPORTS SOB AND DYSPNEA UPON EXERTION. THIS RN NOTED PT SITTING UP TO BEDSIDE AND AT TIMES IN TRIPOD POSITIONING USING BEDSIDE TABLE. 02 SATS MAINTAINING DURING THIS. NO OTHER CHANGES. PT USING ICE PACKS ON NECK AND BACK FOR CHRONIC PAIN. CALL LIGHT IN REACH AND PT CALLS APPROPRIATELY
[2022-07-01 07:28] LABS: BAND PERCENT MAN 4 % (0-8); BASOPHILS PERCENT MAN 0 % (0-2); EOSINOPHILS PERCENT MAN 0 % (0-6); LYMPHOCYTES ABSOLUTE MAN 0.86 K/mm3 (0.84-5.20); LYMPHOCYTES PERCENT MAN 3 % (21-46); METAMYELOCYTE ABSOLUTE MAN 0.28 K/mm3 (0.00-0.00); METAMYELOCYTE PERCENT MAN 1 % (0-0); MONOCYTES ABSOLUTE MAN 4.01 K/mm3 (0.16-1.47); MONOCYTES PERCENT MAN 14 % (4-13); MYELOCYTE ABSOLUTE MAN 1.43 K/mm3 (0.00-0.00); MYELOCYTE PERCENT MAN 5 % (0-0); SEG NEUTROPHILS PERCENT MAN 73 % (41-73); TOTAL CELLS COUNTED 100
[2022-07-02 04:24] LABS: Hematocrit 34.9 % (37.0-53.0); Hemoglobin 11.3 g/dL (13.5-17.5); Mean Corpuscular HGB 32.3 pg (26.0-34.0); Mean Corpuscular HGB Conc 32.4 g/dL (31.5-36.5); Mean Corpuscular Volume 100 fL (80-100); Mean Platelet Volume 9.3 fL (9.1-12.4); Platelet Count 276 K/mm3 (150-400); RDW Coefficient Variation 14.6 % (11.7-14.2); RDW Standard Deviation 53.5 fL (35.1-46.3); White Blood Cell Count 24.95 K/mm3 (4.00-11.30)
[2022-07-02 04:42] LABS: International Normalized Ratio 3.41
[2022-07-02 04:45] LABS: Albumin, Blood 3.1 g/dL (3.4-5.0); Anion Gap 5 mmol/L (6-16); Blood Urea Nitrogen 31 mg/dL (8-24); Bun/Creatinine Ratio 33.1 (12.0-20.0); CO2, Blood 27 mmol/L (21-32); Calcium, Blood 9.4 mg/dL (8.5-10.1); Chloride, Blood 106 mmol/L (98-108); Creatinine, Blood 0.94 mg/dL (0.60-1.20); Glomerular Filtration Rate 84 (60-); Glucose, Blood 105 mg/dL (70-99); Phosphorus, Blood 2.7 mg/dL (2.5-4.9); Potassium, Blood 4.9 mmol/L (3.5-5.5); Sodium, Blood 138 mmol/L (136-145)
[2022-07-02 05:22] LABS: BAND PERCENT MAN 4 % (0-8); BASOPHILS PERCENT MAN 0 % (0-2); EOSINOPHILS PERCENT MAN 0 % (0-6); LYMPHOCYTES ABSOLUTE MAN 0.99 K/mm3 (0.84-5.20); LYMPHOCYTES PERCENT MAN 4 % (21-46); MONOCYTES ABSOLUTE MAN 1.99 K/mm3 (0.16-1.47); MONOCYTES PERCENT MAN 8 % (4-13); MYELOCYTE ABSOLUTE MAN 0.74 K/mm3 (0.00-0.00); MYELOCYTE PERCENT MAN 3 % (0-0); SEG NEUTROPHILS PERCENT MAN 81 % (41-73); TOTAL CELLS COUNTED 100
--- NOTE | 2022-07-02 05:55 | NUR ---
SHIFT SUMMARY PT A&O X4, PLEASANT AND COOPERATIVE WITH CARE. VSS. CARDIZEM GTT STILL INFUSING AT 10 MG/HR; HR AFIB IN 90'S. HR DOES INCREASE TO 100'S WITH EXERTION. PT ON BIPAP MOST OF THE SHIFT, O2 SATS MAINTAINING WELL. PT STATES HIS BREATHING SEEMS TO BE IMPROVING EACH DAY. NO ACUTE CHANGES THROUGOUT SHIFT. PT CALLS AND VERBALIZES NEEDS APPROPRIATELY. CXR COMPLETED THIS AM.
--- NOTE | 2022-07-02 08:03 | NUR ---
ASSUMPTION OF CARE: NEURO: PATIENT IS COMPLETELY ALERT AND ORIENTED. PLEASANT, ABLE TO MAKE NEEDS KNOWN, USES THE CALL LIGHTL APPROPRIATELY. CARDIAC: CURRENLTY CHEST PAIN FREE, CARDIZEM RUNNING AT 10 HR 90-110. BLOOD PRESSURE NORMOTENSIVE AT THIS TIME. VERY SLIGHT BLE EDEMA, IMPROVING. PULM: CURRENLTY ON 2L VIA NC >94%SPO2 . WORE BIPAP IN THE NIGHT WITH 5L BLEED IN SPO2 100% WHEN WEARING. PATIENT IN NO ACUTE SIGN OF RESPIRATORY DISTRESS, CURRENLTY SITTING AT THE SIDE OF THE BED. SKIN: NO POTENTIAL ISSUE AT THIS TIME, ABLE TO REPOSITION SELF IN BED, AND MOVES FREQUENTLY. WILL CONITNUE TO MONITOR UNTIL SHIFT CHANGE.
--- NOTE | 2022-07-02 11:34 | NUR ---
CARDIZEM CHANGE: TURNED OFF FOR CARDIZEM IN ORDER TO RUN REMDESIVIR, PATIENT HAS BEEN IN THE 80-90'S WILL CONTINUE TO MONITOR.
--- NOTE | 2022-07-02 16:16 | NUR ---
END OF SHIFT: ONLY CHANGES FROM ASUMPTION OF CARE IS PATIET HAS BEEN OFF CARDIZEM MOST OF THE DAY, (SINCE 1115). PATIENT HAS BEEN HIGH 120 BUT HAS BEEN TYPICALY UPPER 80'S-100'S WILL RESTART IF MAINTAINING , 110 FOR AN EXTENDED PERIOD OF TIME. PATIENT HAS BEEN NORMOTENSIVE. EVEN WHEN ON CARDIZEM. PATIENT HAS BEEN HAVING BREAKS WHERE HE HAS NO O2 ON NC ATTATCHED, TYPICALLY NEEDS 2L VIA NC. NO SIGN OF ACUTE DISTRESS, STILL DENIES CHEST PAIN OR SOB. WILL CONTINUE TO MONITOR UNTIL SHIFT CHANGE. NO CONCERNS FROM PATIENT OR THIS RN AT THIS TIME.
[2022-07-03 04:47] LABS: Hematocrit 35.1 % (37.0-53.0); Hemoglobin 11.7 g/dL (13.5-17.5); Mean Corpuscular HGB 32.6 pg (26.0-34.0); Mean Corpuscular HGB Conc 33.3 g/dL (31.5-36.5); Mean Corpuscular Volume 98 fL (80-100); Mean Platelet Volume 9.4 fL (9.1-12.4); Platelet Count 285 K/mm3 (150-400); RDW Coefficient Variation 14.4 % (11.7-14.2); RDW Standard Deviation 52.3 fL (35.1-46.3); Red Blood Cell Count 3.59 M/mm3 (4.30-5.90); White Blood Cell Count 26.11 K/mm3 (4.00-11.30)
[2022-07-03 05:05] LABS: International Normalized Ratio 2.77; Prothrombin Time Results 27.2 Sec (9.7-11.5)
[2022-07-03 05:15] LABS: Albumin, Blood 2.9 g/dL (3.4-5.0); Anion Gap 7 mmol/L (6-16); Blood Urea Nitrogen 35 mg/dL (8-24); Bun/Creatinine Ratio 39.5 (12.0-20.0); CO2, Blood 26 mmol/L (21-32); Calcium, Blood 9.4 mg/dL (8.5-10.1); Chloride, Blood 106 mmol/L (98-108); Creatinine, Blood 0.89 mg/dL (0.60-1.20); Glomerular Filtration Rate 89 (60-); Glucose, Blood 113 mg/dL (70-99); Phosphorus, Blood 3.2 mg/dL (2.5-4.9); Potassium, Blood 4.5 mmol/L (3.5-5.5); Sodium, Blood 139 mmol/L (136-145)
[2022-07-03 05:30] LABS: BAND PERCENT MAN 10 % (0-8); BASOPHILS PERCENT MAN 0 % (0-2); EOSINOPHILS PERCENT MAN 0 % (0-6); LYMPHOCYTES ABSOLUTE MAN 3.39 K/mm3 (0.84-5.20); LYMPHOCYTES PERCENT MAN 13 % (21-46); METAMYELOCYTE ABSOLUTE MAN 0.78 K/mm3 (0.00-0.00); METAMYELOCYTE PERCENT MAN 3 % (0-0); MONOCYTES PERCENT MAN 5 % (4-13); MYELOCYTE ABSOLUTE MAN 0.26 K/mm3 (0.00-0.00); MYELOCYTE PERCENT MAN 1 % (0-0); NEUTROPHILS ABSOLUTE MAN 20.36 K/mm3 (1.96-9.15); SEG NEUTROPHILS PERCENT MAN 68 % (41-73); TOTAL CELLS COUNTED 100
--- NOTE | 2022-07-03 05:36 | NUR ---
SHIFT SUMMARY NO ACUTE CHANGES THROUGHOUT SHIFT. VSS; PT USING BIPAP MOST OF SHIFT. O2 SATS MAINTAINING >98% HR; AFIB IN 90'S 100'S, HR DOES INCREASE TO 1 TEENS - 120'S WITH MOVEMENT. PT RESTED WELL THROUGHOUT MOST OF THE SHIFT. CALL LIGHT IN REACH AND PT CALLING APPROPRIATELY FOR NEEDS.
--- NOTE | 2022-07-03 18:32 | NUR ---
END OF SHIFT: NEURO: COMPLETELY ALERT AND ORIENTED, ABLE TO MAKE NEEDS KNOWN, PLEASANT. CARDIAC: CARDIZEM HAS BEEN OFF SINCE 07/02 AT 1115. PATIENT HR THIS AM WAS MORE INCREASED AROUND 110-120'S AT TIMES TO NOW BEING 80-100'S. DENIES CHEST PAIN PRESSURE OR SOB. NORMOTENSIVE FOR PATIENT AT THIS TIME. PULM: NC AT 1-2L VIA NC WHEN AWAKE, AND BIPAP WHILE ASLEEP. PATIENT COMPLIANT AND MAKES NEEDS KNOWN FOR SWITCHING. SPO2>95%. NO ACUTE DISTRESS AT THIS TIME. /GI: GREAT URINE OUTPUT, BNP NOT ELEVATED NO DUIRETICS, BOWEL CARE STARTED NO BM SINCE ADMISSION. PATIENT ENDORSES DAILY MIRALAX AT TIMES. NO CONCERNS OR QUESTIONS FROM THIS PATIENT AT THIS TIME WILL CONTINUE TO MONITOR UNTIL SHIFT CHANGE.
[2022-07-04 04:24] LABS: Hematocrit 38.3 % (37.0-53.0); Mean Corpuscular HGB 32.4 pg (26.0-34.0); Mean Corpuscular HGB Conc 33.9 g/dL (31.5-36.5); Mean Corpuscular Volume 96 fL (80-100); Platelet Count 337 K/mm3 (150-400); RDW Coefficient Variation 14.1 % (11.7-14.2); RDW Standard Deviation 49.8 fL (35.1-46.3); Red Blood Cell Count 4.01 M/mm3 (4.30-5.90); White Blood Cell Count 30.57 K/mm3 (4.00-11.30)
[2022-07-04 04:50] LABS: International Normalized Ratio 2.34; Prothrombin Time Results 23.2 Sec (9.7-11.5)
[2022-07-04 05:11] LABS: Albumin, Blood 3.1 g/dL (3.4-5.0); Anion Gap 9 mmol/L (6-16); Blood Urea Nitrogen 32 mg/dL (8-24); Bun/Creatinine Ratio 35.4 (12.0-20.0); CO2, Blood 23 mmol/L (21-32); Calcium, Blood 9.5 mg/dL (8.5-10.1); Chloride, Blood 105 mmol/L (98-108); Glomerular Filtration Rate 89 (60-); Glucose, Blood 107 mg/dL (70-99); Phosphorus, Blood 3.4 mg/dL (2.5-4.9); Potassium, Blood 4.6 mmol/L (3.5-5.5); Sodium, Blood 137 mmol/L (136-145)
--- NOTE | 2022-07-04 05:50 | NUR ---
SHIFT SUMMARY VSS. HR; AFIB IN 90'S - 100'S, INCREASES WITH EXERTION BUT DOES NOT SUSTAIN. NO EVENTS OF SOB, PT STATES HE FEELS LIKE HIS BREATHING IS BETTER. RT CHANGED TO CPAP SETTINGS W/OUT BLEED IN. O2 SATS MAINTAINED >95% THROUGHOUT NIGHT. PT USING URINAL W/ASSISTANCE, GOOD OUTPUT. PT STILL HAS NOT HAD A BM. NO ACUTE CHANGES THROUGHOUT NIGHT. CALL LIGHT IN REACH AND PT CALLING APPROPRIATELY
[2022-07-04 06:07] LABS: BAND PERCENT MAN 3 % (0-8); BASOPHILS PERCENT MAN 0 % (0-2); EOSINOPHILS PERCENT MAN 0 % (0-6); LYMPHOCYTES % ATYPICAL MANUAL 1 % (0-0); LYMPHOCYTES ABSOLUTE MAN 2.13 K/mm3 (0.84-5.20); LYMPHOCYTES PERCENT MAN 6 % (21-46); MONOCYTES ABSOLUTE MAN 3.05 K/mm3 (0.16-1.47); MONOCYTES PERCENT MAN 10 % (4-13); MYELOCYTE PERCENT MAN 18 % (0-0); NEUTROPHILS ABSOLUTE MAN 19.87 K/mm3 (1.96-9.15); SEG NEUTROPHILS PERCENT MAN 62 % (41-73); TOTAL CELLS COUNTED 100
--- NOTE | 2022-07-04 09:00 | NUR ---
NURSING PCU DAYSHIFT: Assumed care of pt at approx 0700. A/O, very pleasant, cooperative w/care. Denies any pain/discomfort at rest. Skin is dry and intact, no breakdown noted. Repositions independently and transitions to edge of bed w/minimal assistance. Tele in place, aflutter w/HR 120's prior to a.m. meds, SBP 115, no c/o CP/pressure, trace LLE edema. L/S cta t/o, O2 sat mid 90's while on CPAP w/no O2 bleed in, respirations unlabored, L/S cta t/o, occ cough producing small amts of cm/green sputum, denies dyspnea, continuous O2 monitoring. Abd obese, SNT, BT hypoactive, voiding w/o difficulty using urinal. PIV x1, s/l. No s/s of acute distress. Pt c/o constipation, providing bowel care regimen along w/prune juice. Denies any other current needs or questions regarding plan of care. Awaiting rounding from PMD, call light in reach, cont to monitor for any changes.
--- NOTE | 2022-07-04 17:24 | NUR ---
NURSING PCU DAYSHIFT SUMMARY: Pt has done very well t/o the shift. Worked w/therapy today, ambulated in room and spent much of the shift OOB in a chair. Wore CPAP during periods of rest, able to tolerate RA while awake and maintained O2 sat in the mid to upper 90's. Pt expressed concern for contipation several times this a.m. to staff, care plan discussed and meds administered. Pt was able to successfully have large, formed, soft BM midshift and d/t increase flatus and cramping, has requested that bowel regimen meds changed to PRN. Orders updated on emar. No s/s of acute distress this evening. Pt is in good spirits regarding improvement and increase in physical activity today. Currently resting comfortably w/CPAP in place, cont to monitor until rpt is given to NOC RN.
--- NOTE | 2022-07-05 05:53 | NUR ---
BIOFUELS PRODUCTION ASSOCIATE SUMMARY PT IS ALERT AND ORIENTED THIS SHIFT COMMUNICATING APPRORIATELY W STAFF. PT DENIED ANY CP OR PRESSURE THIS SHIFT. TELE SHOWING SR 70'S W BIGEMINAL AND TRIGEMINAL PVC'S THIS SHIFT. PT'S R GROIN SITE IS C/D/I W NO S/S OF BLEEDING, SWELLING OR TENDERNESS THIS SHIFT. BP WNL AND STABLE. PT ABLE TO SLEEP COMFORTABLY FOR MOST OF THE NIGHT W CALL LIGHT WITHIN REACH. WILL REPORT TO ONCOMING RN.
--- NOTE | 2022-07-05 06:02 | NUR ---
PIPELINE MAINTENANCE SUPERVISOR SUMMARY PT IS ALERT AND ORIENTED COMMUNICATING APPROPRIATELY W STAFF THIS SHIFT. PT MAINTAINING SPO2 SATS >92% ON RM AIR BUT DID WEAR HIS CPAP WHILE IN BED W NO ADDITIONAL O2 BLEED IN. BP WNL AND STABLE. TELE SHOWING AFIB 90'S-100'S THIS SHIFT. PT AFEBRILE. PT DENYING ANY PAIN OR NAUSEA THIS SHIFT. WILL REPORT TO ONCOMING RN.
[2022-07-05 06:36] LABS: Hematocrit 40.1 % (37.0-53.0); Hemoglobin 13.5 g/dL (13.5-17.5); International Normalized Ratio 2.75; Mean Corpuscular HGB 32.1 pg (26.0-34.0); Mean Corpuscular HGB Conc 33.7 g/dL (31.5-36.5); Mean Corpuscular Volume 96 fL (80-100); Platelet Count 354 K/mm3 (150-400); RDW Coefficient Variation 14.1 % (11.7-14.2); RDW Standard Deviation 49.1 fL (35.1-46.3); White Blood Cell Count 39.87 K/mm3 (4.00-11.30)
[2022-07-05 06:54] LABS: Bun/Creatinine Ratio 34.1 (12.0-20.0); Calcium, Blood 9.2 mg/dL (8.5-10.1); Creatinine, Blood 0.97 mg/dL (0.60-1.20); Potassium, Blood 4.2 mmol/L (3.5-5.5)
[2022-07-05 08:03] LABS: BAND PERCENT MAN 2 % (0-8); BASOPHILS PERCENT MAN 0 % (0-2); EOSINOPHILS PERCENT MAN 0 % (0-6); LYMPHOCYTES ABSOLUTE MAN 4.38 K/mm3 (0.84-5.20); LYMPHOCYTES PERCENT MAN 11 % (21-46); METAMYELOCYTE ABSOLUTE MAN 0.79 K/mm3 (0.00-0.00); METAMYELOCYTE PERCENT MAN 2 % (0-0); MONOCYTES ABSOLUTE MAN 2.79 K/mm3 (0.16-1.47); MONOCYTES PERCENT MAN 7 % (4-13); MYELOCYTE ABSOLUTE MAN 5.98 K/mm3 (0.00-0.00); MYELOCYTE PERCENT MAN 15 % (0-0); NEUTROPHILS ABSOLUTE MAN 25.91 K/mm3 (1.96-9.15); SEG NEUTROPHILS PERCENT MAN 63 % (41-73); TOTAL CELLS COUNTED 100
--- NOTE | 2022-07-05 09:05 | NUR ---
Pt is lying down in bed, awake, wearing CPAP. Finished eating breakfast earlier at 8am while sitting on side of bed. STates that he had a large loose bowel movement this am. Declines bowel care today. Vital signs taken; heart rate 105-114 bpm, atrial fibrillation. Blood pressure low, 95/66 on left arm, 91/77 on the right. Lisinopril and Toprol XL held per holding parameters this morning.
--- NOTE | 2022-07-05 15:08 | NUR ---
Pt has had no complaints at all today. He has been wanting to nap since finishing his breakfast. Wearing his CPAP without supplemental oxygen and only occasionally waking up to ask for ice water, blinds closed, and declining offered lunch food.
[2022-07-06 04:32] LABS: Hematocrit 42.9 % (37.0-53.0); Hemoglobin 14.5 g/dL (13.5-17.5); Mean Corpuscular HGB 32.3 pg (26.0-34.0); Mean Corpuscular HGB Conc 33.8 g/dL (31.5-36.5); Mean Corpuscular Volume 96 fL (80-100); Mean Platelet Volume 8.9 fL (9.1-12.4); Platelet Count 391 K/mm3 (150-400); RDW Coefficient Variation 14.1 % (11.7-14.2); RDW Standard Deviation 49.3 fL (35.1-46.3); Red Blood Cell Count 4.49 M/mm3 (4.30-5.90); White Blood Cell Count 41.17 K/mm3 (4.00-11.30)
[2022-07-06 05:02] LABS: Bun/Creatinine Ratio 32.1 (12.0-20.0); Calcium, Blood 9.2 mg/dL (8.5-10.1); Creatinine, Blood 1.06 mg/dL (0.60-1.20); Potassium, Blood 4.3 mmol/L (3.5-5.5)
[2022-07-06 05:03] LABS: International Normalized Ratio 2.65; Prothrombin Time Results 26.1 Sec (9.7-11.5)
--- NOTE | 2022-07-06 05:59 | NUR ---
PLUGGING MACHINE OPERATOR SUMMARY ASSUMED CARE OF THE PT AT 1900. HE IS ALERT AND ORIENTED X4, MOSTLY INDEPENDENT IN THE ROOM. PT IS LOUNGING ACROSS HIS BED AT TIME OF ASSESSMENT AND APPEARS TO BE IN NO ACUTE DISTRESS. HE IS ON RA DURING THE DAY AND HOME SETTINGS OF CPAP AT NIGHT. PT SATURATION REMAINS IN THE MID 90S THROUGHOUT THE SHIFT. TELE HAS BEEN AFIB IN THE 100S AND 110S, INCREASING TO THE 130S WITH ACTIVITY. FREQUENT DRY COUGH. LUNG SOUNDS DIMINISHED RELATING TO BODY HABITUS. PT RECEIVED ONE DOSE OF IV LEVAQUIN LAST NIGHT BUT WBC ARE ELEVATED TO 41.17 ON MORNING LABS. BPS REMAIN STABLE.
[2022-07-06 06:20] LABS: BAND PERCENT MAN 6 % (0-8); BASOPHILS PERCENT MAN 0 % (0-2); EOSINOPHILS PERCENT MAN 0 % (0-6); LYMPHOCYTES ABSOLUTE MAN 5.76 K/mm3 (0.84-5.20); LYMPHOCYTES PERCENT MAN 14 % (21-46); METAMYELOCYTE ABSOLUTE MAN 2.05 K/mm3 (0.00-0.00); METAMYELOCYTE PERCENT MAN 5 % (0-0); MONOCYTES ABSOLUTE MAN 2.88 K/mm3 (0.16-1.47); MONOCYTES PERCENT MAN 7 % (4-13); MYELOCYTE PERCENT MAN 9 % (0-0); NEUTROPHILS ABSOLUTE MAN 26.76 K/mm3 (1.96-9.15); SEG NEUTROPHILS PERCENT MAN 59 % (41-73); TOTAL CELLS COUNTED 100
--- NOTE | 2022-07-06 10:00 | NUR ---
Phone call with pt's this morning to update her on pt's condition. 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
--- NOTE | 2022-07-06 12:07 | NUR ---
Ambulated to the bathroom with geriwalker, gait belt and 1 staff standby assistance, supervision and holding on to telemetry box only. Pt denies any dizzyness/lightheadedness/loss of balance. Mild shortness of breath noted after short walk from bed to toilet. Call light in his reach to call when done having BM.
--- NOTE | 2022-07-06 12:25 | NUR ---
Sitting in recliner chair after attempt to have BM. Eating lunch. VITAL signs, including spo2, are stable.
--- NOTE | 2022-07-06 13:50 | NUR ---
Rounded with Dr. Gross in pt's room. Pt is wearing CPAP and resting in bed when not active. Information from pt's was given to the doctor. New orders to look for possible infection in urine and blood were rec'd. Pt has clean new urinal and cleansing wipes at the bedside. He was instructed on method for clean catch urine specimen collection.
[2022-07-06 18:55] LABS: Source, Urine Clean Catch
[2022-07-06 19:04] LABS: Bilirubin, Urine Neg (Neg); Blood, Urine Neg (Neg); Glucose Qualitative, Urine Neg (Neg); Ketones, Urine Neg (Neg); Leukocyte Esterase, Urine Neg (Neg); Nitrite, Urine Neg (Neg); Protein, Urine 1+ (Neg); Specific Gravity, Urine 1.025 (1.003-1.022); Urobilinogen, Urine 1+ (Normal)
[2022-07-06 20:01] LABS: Appearance, Urine Clear (Clear); Color, Urine Yellow (P-Yellow)
[2022-07-07 03:50] LABS: Hematocrit 41.2 % (37.0-53.0); Hemoglobin 13.8 g/dL (13.5-17.5); Mean Corpuscular HGB Conc 33.5 g/dL (31.5-36.5); Mean Corpuscular Volume 96 fL (80-100); Mean Platelet Volume 8.9 fL (9.1-12.4); Platelet Count 394 K/mm3 (150-400); RDW Coefficient Variation 14.1 % (11.7-14.2); Red Blood Cell Count 4.31 M/mm3 (4.30-5.90); White Blood Cell Count 36.53 K/mm3 (4.00-11.30)
[2022-07-07 04:10] LABS: International Normalized Ratio 2.85; Prothrombin Time Results 27.9 Sec (9.7-11.5)
[2022-07-07 04:13] LABS: Calcium, Blood 8.8 mg/dL (8.5-10.1); Creatinine, Blood 1.23 mg/dL (0.60-1.20); Potassium, Blood 4.2 mmol/L (3.5-5.5)
[2022-07-07 05:40] LABS: BAND PERCENT MAN 7 % (0-8); BASOPHILS PERCENT MAN 0 % (0-2); EOSINOPHILS PERCENT MAN 0 % (0-6); LYMPHOCYTES ABSOLUTE MAN 2.92 K/mm3 (0.84-5.20); LYMPHOCYTES PERCENT MAN 8 % (21-46); METAMYELOCYTE ABSOLUTE MAN 2.92 K/mm3 (0.00-0.00); METAMYELOCYTE PERCENT MAN 8 % (0-0); MONOCYTES ABSOLUTE MAN 0.73 K/mm3 (0.16-1.47); MONOCYTES PERCENT MAN 2 % (4-13); MYELOCYTE ABSOLUTE MAN 3.28 K/mm3 (0.00-0.00); MYELOCYTE PERCENT MAN 9 % (0-0); NEUTROPHILS ABSOLUTE MAN 26.66 K/mm3 (1.96-9.15); SEG NEUTROPHILS PERCENT MAN 66 % (41-73); TOTAL CELLS COUNTED 100
--- NOTE | 2022-07-07 06:25 | NUR ---
TWISTER HAND SUMMARY ASSUMED CARE OF THE PATIENT AT 1900. HE IS ALERT AND ORIENTED X4, MOSTLY INDEPENDENT IN THE ROOM EXCEPT FOR LINES AND TUBES. LUNG SOUNDS DIMINISHED BUT APPEAR TO BE CLEARING UP. PT DENIES ANY WORSENING SOB BUT DOES HAVE THE INFREQUENT DRY COUGH. HE DENIES ANY PAIN. TELE HAS BEEN AFIB IN THE 90S AND 100S UP TO 120S WITH ACTIVITY. AWAITING BLOOD CULTURES. WBC IMPROVING TO 36 TODAY.
--- NOTE | 2022-07-07 10:41 | NUR ---
PT REMAINS A/O X4 THIS MORNING. PT AMBULATING INDEPENDENTLY FROM CHAIR TO BATHROOM AND BACK TO BED. ONLY NEEDING ASSISTANCE FOR CORD MANAGEMENT. PT ON ROOM AIR, SPO2 >94%, LUNGS ARE CLEAR BUT DIMINISHED. PT HAS INFREQUENT PRODUCTIVE COUGH. PT STILL SHOWING AFIB ON TELE, HR BETWEEN 90-110. PT DENYING ANY CP/PRESSURE OR SOB. PT WBC TRENDING DOWN AFTER THIS MORNING'S LABS. PTS CALLED TO CHECK ON PT STATUS AND WAS UPDATED ABOUT THIS.
--- NOTE | 2022-07-07 18:23 | NUR ---
NO ACUTE CHANGES WITH PATIENT DURING THIS SHIFT. PT REMAINS ON RA, O2 >94%. PT HR BETWEEN 90-110BPM. PT DENYING ANY SOB OR CP/PRESSURE. LUNGS SOUNDS ARE CLEARING COMPARED TO YESTERDAY. PT PLEASANT AND CONVERSANT WITH STAFF. WBC COUNT TRENDING DOWN. PT AMBULATING INDEPENDTLY WITH HELP FROM STAFF FOR CORD MANAGEMENT. PT WEARING BIPAP MASK WHILE SLEEPING AND IS VERY DILIGENT ABOUT ASKING FOR IT TO BE PLACED.
[2022-07-08 04:13] LABS: Hematocrit 42.4 % (37.0-53.0); Hemoglobin 13.9 g/dL (13.5-17.5); Mean Corpuscular HGB 31.6 pg (26.0-34.0); Mean Corpuscular HGB Conc 32.8 g/dL (31.5-36.5); Mean Corpuscular Volume 96 fL (80-100); Platelet Count 399 K/mm3 (150-400); RDW Coefficient Variation 14.3 % (11.7-14.2); RDW Standard Deviation 50.2 fL (35.1-46.3)
[2022-07-08 04:27] LABS: International Normalized Ratio 3.06; Prothrombin Time Results 29.9 Sec (9.7-11.5)
[2022-07-08 04:29] LABS: Albumin, Blood 3.2 g/dL (3.4-5.0); Anion Gap 4 mmol/L (6-16); Blood Urea Nitrogen 42 mg/dL (8-24); Bun/Creatinine Ratio 33.9 (12.0-20.0); CO2, Blood 29 mmol/L (21-32); Calcium, Blood 8.8 mg/dL (8.5-10.1); Chloride, Blood 102 mmol/L (98-108); Creatinine, Blood 1.24 mg/dL (0.60-1.20); Glomerular Filtration Rate 60 (60-); Glucose, Blood 94 mg/dL (70-99); Phosphorus, Blood 3.3 mg/dL (2.5-4.9); Potassium, Blood 4.4 mmol/L (3.5-5.5); Sodium, Blood 135 mmol/L (136-145)
[2022-07-08 05:44] LABS: BAND PERCENT MAN 3 % (0-8); BASOPHILS PERCENT MAN 0 % (0-2); EOSINOPHILS PERCENT MAN 0 % (0-6); LYMPHOCYTES ABSOLUTE MAN 4.52 K/mm3 (0.84-5.20); LYMPHOCYTES PERCENT MAN 13 % (21-46); METAMYELOCYTE ABSOLUTE MAN 1.74 K/mm3 (0.00-0.00); METAMYELOCYTE PERCENT MAN 5 % (0-0); MONOCYTES ABSOLUTE MAN 1.39 K/mm3 (0.16-1.47); MONOCYTES PERCENT MAN 4 % (4-13); MYELOCYTE ABSOLUTE MAN 3.13 K/mm3 (0.00-0.00); MYELOCYTE PERCENT MAN 9 % (0-0); NEUTROPHILS ABSOLUTE MAN 24.01 K/mm3 (1.96-9.15); SEG NEUTROPHILS PERCENT MAN 66 % (41-73); TOTAL CELLS COUNTED 100
--- NOTE | 2022-07-08 06:51 | NUR ---
NO ISSUES OVERNIGHT EXCEPT PT SEEMED DOWN IN SPIRITS/DEPRESSED, WE TALKED ABOUT THE POSITIVES AND WAYS TO POSSIBLY OVERCOME THE ISOLATION OF [place], SPOKE WITH PTS SPOUSE TYRONE AND SHE IS HAVING FAMILY CALL TO CHAT AND SEND SANTOYO, SHE SAYS PT IS AN EXTREMELY SOCIAL PERSON AND HE IS STRUGGLING WITH BEING CUT OFF
--- NOTE | 2022-07-08 15:01 | NUR ---
CALL TO PROVIDER THIS RN CALLS PROVIDER TO REQUEST SOMETHING DIFFERENT FOR PT COUGH D/T PHARMACY NOTIFY OF OUT OF LOZENGES
--- NOTE | 2022-07-08 19:50 | NUR ---
SHIFT SUMMARY PT AOX4 T/O SHIFT, HR 80'S-90'S AFIB T/O MOST OF SHIFT, UP TO 100'S WITH ACTIVITY SUCH REPOSITIONING IN BED, COUGHING, SITTING UP, USING URINAL. PT C/O PERSISTENT COUGH RELIEVED WITH REST. HOSPITAL IS OUT OF LOZENGES PER PHARMACY, ORDER OBTAINED FOR TESSALON PEARLES AND COUGH MEDICINE. PT RESTS ON CPAP, NO FURTHER C/O DENIED CP T/O SHIFT.
[2022-07-09 05:04] LABS: Hematocrit 40.8 % (37.0-53.0); Hemoglobin 13.7 g/dL (13.5-17.5); Mean Corpuscular HGB 32.2 pg (26.0-34.0); Mean Corpuscular HGB Conc 33.6 g/dL (31.5-36.5); Mean Corpuscular Volume 96 fL (80-100); Mean Platelet Volume 8.9 fL (9.1-12.4); Platelet Count 375 K/mm3 (150-400); RDW Coefficient Variation 14.3 % (11.7-14.2); Red Blood Cell Count 4.25 M/mm3 (4.30-5.90); White Blood Cell Count 30.23 K/mm3 (4.00-11.30)
[2022-07-09 05:21] LABS: Bun/Creatinine Ratio 36.1 (12.0-20.0); Calcium, Blood 8.7 mg/dL (8.5-10.1); Creatinine, Blood 1.22 mg/dL (0.60-1.20); International Normalized Ratio 2.73; Potassium, Blood 4.7 mmol/L (3.5-5.5); Prothrombin Time Results 26.8 Sec (9.7-11.5)
[2022-07-09 05:53] LABS: BAND PERCENT MAN 3 % (0-8); BASOPHILS PERCENT MAN 0 % (0-2); EOSINOPHILS PERCENT MAN 0 % (0-6); LYMPHOCYTES ABSOLUTE MAN 3.02 K/mm3 (0.84-5.20); LYMPHOCYTES PERCENT MAN 10 % (21-46); METAMYELOCYTE ABSOLUTE MAN 1.51 K/mm3 (0.00-0.00); METAMYELOCYTE PERCENT MAN 5 % (0-0); MONOCYTES ABSOLUTE MAN 1.51 K/mm3 (0.16-1.47); MONOCYTES PERCENT MAN 5 % (4-13); MYELOCYTE ABSOLUTE MAN 1.81 K/mm3 (0.00-0.00); MYELOCYTE PERCENT MAN 6 % (0-0); NEUTROPHILS ABSOLUTE MAN 22.37 K/mm3 (1.96-9.15); SEG NEUTROPHILS PERCENT MAN 71 % (41-73); TOTAL CELLS COUNTED 100
--- NOTE | 2022-07-09 06:04 | NUR ---
NO ISSUES OVERNIGHT, WBC'S STILL TRENDING DOWN, AFIB IN 80'S TO 100'S, VSS, AFEBRILE, TYRONE UPDATED VIA PHONE
--- NOTE | 2022-07-09 16:30 | NUR ---
PT SUMMARY: NO ACUTE CHANGE FOR THE SHIFT, PT REMAINED ALERT AND ORIENTED, AMBULATORY IN THE ROOM ASSISTED. VITALS HAS BEEN STABLE. USES CPAP MACHINE INDEPENDENTLY WHEN SLEEPING. REQUESTED MIRALAX TODAY EVEN PT ALREADY HAD A BOWEL MOVEMENT. NO OTHER ISSUES ENCOUNTERED FOR THE SHIFT ABLE TO MAKE NEEDS KNOWN, WILL MONITOR
--- NOTE | 2022-07-10 04:59 | NUR ---
NO ISSUES OVERNIGHT, PT SLEPT WELL, AFEBRILE, HR IN 80'S AND B/P WNL, UO ADEQUATE AND LABS PENDING
[2022-07-10 05:08] LABS: Hematocrit 41.6 % (37.0-53.0); Hemoglobin 13.7 g/dL (13.5-17.5); Mean Corpuscular HGB 31.8 pg (26.0-34.0); Mean Corpuscular HGB Conc 32.9 g/dL (31.5-36.5); Mean Corpuscular Volume 97 fL (80-100); Mean Platelet Volume 8.9 fL (9.1-12.4); Platelet Count 409 K/mm3 (150-400); RDW Coefficient Variation 14.2 % (11.7-14.2); Red Blood Cell Count 4.31 M/mm3 (4.30-5.90); White Blood Cell Count 25.17 K/mm3 (4.00-11.30)
[2022-07-10 05:44] LABS: International Normalized Ratio 2.73; Prothrombin Time Results 26.8 Sec (9.7-11.5)
[2022-07-10 06:19] LABS: BAND PERCENT MAN 1 % (0-8); BASOPHILS PERCENT MAN 0 % (0-2); EOSINOPHILS PERCENT MAN 0 % (0-6); LYMPHOCYTES ABSOLUTE MAN 3.02 K/mm3 (0.84-5.20); LYMPHOCYTES PERCENT MAN 12 % (21-46); METAMYELOCYTE ABSOLUTE MAN 0.25 K/mm3 (0.00-0.00); METAMYELOCYTE PERCENT MAN 1 % (0-0); MONOCYTES ABSOLUTE MAN 2.76 K/mm3 (0.16-1.47); MONOCYTES PERCENT MAN 11 % (4-13); MYELOCYTE ABSOLUTE MAN 1.25 K/mm3 (0.00-0.00); MYELOCYTE PERCENT MAN 5 % (0-0); NEUTROPHILS ABSOLUTE MAN 17.87 K/mm3 (1.96-9.15); SEG NEUTROPHILS PERCENT MAN 70 % (41-73); TOTAL CELLS COUNTED 100
--- NOTE | 2022-07-10 09:30 | NUR ---
AM NOTE: PATIENT ALERT AND ORIENTED X4. PERRPOORNIMA. PEGGY N/T. UP WITH SBA TO HELP MANAGE CORDS. DENIES OVERALL PAINS. ON ROOM AIR SATING ABOVE 95%. LUNGS SOUNDING CLEAR AND DIM. CPAP AT BEDSIDE FOR NOC. TELE SHOWING AFIB WITH HR 90'S. DENIES CHEST PAIN/PRESSURE. BP ON SOFTER SIDE. PO ZESTRIL HELD THIS AM. DENIES FEELING DIZZY. TRACE EDEMA TO BLE. DENIES ABDOMINAL PAIN/NAUSEA. PRN MIRILAX GIVEN THIS AM. EATING WNL. PLAN FOR DISCHARGE. HOME O2 EVAL ORDERS IN PLACE. CALL LIGHT IN REACH.
[2022-07-10] MEDS ORDERED: Tessalon200 MG PO (10:29)
[2022-07-10] MEDS ORDERED: Q-Tussin100 MG/5 M PO (10:32)
--- NOTE | 2022-07-10 11:24 | NUR ---
DISCHARGE: PATIENT LEFT UNIT AT THIS TIME. NO ACUTE CHANGES, SEE PREVIOUS NOTE. IN TO PICK PATIENT UP. LEFT WITH ALL PERSONAL BELONGINGS. DISCHARGE EDUCATION REVIEWED, NEW MEDICATIONS, FOLLOW UP PCP, AND CBC LAB DRAW. IV REMOVED WNL.
== END 2022-07-10 11:29 | disposition home or self-care (01) | DRG 871 ==
LOC: ER 02:13 → PCU 05:13
PROVIDERS: Emergency Medicine; Family Medicine; Hospitalist; Internal Medicine; ADMIT Internal Medicine
PROC: XW033H6 Introduction of Other New Technology Monoclonal Antibody into Peripheral Vein, Percutaneous Approach, New Technology Group 6 (ICD-10-PCS; principal; 2022-06-30)
PROC: 3E0DX3Z Introduction of Anti-inflammatory into Mouth and Pharynx, External Approach (ICD-10-PCS; 2022-06-30)
PROC: XW0DXM6 Introduction of Baricitinib into Mouth and Pharynx, External Approach, New Technology Group 6 (ICD-10-PCS; 2022-06-30)
PROC: XW033E5 Introduction of Remdesivir Anti-infective into Peripheral Vein, Percutaneous Approach, New Technology Group 5 (ICD-10-PCS; 2022-06-30)
PROC: 8E0ZXY6 Isolation (ICD-10-PCS; 2022-06-30)
PROC: 3E03329 Introduction of Other Anti-infective into Peripheral Vein, Percutaneous Approach (ICD-10-PCS; 2022-06-30)
PROC: 5A09457 Assistance with Respiratory Ventilation, 24-96 Consecutive Hours, Continuous Positive Airway Pressure (ICD-10-PCS; 2022-06-30)
DX: A41.89 Other specified sepsis (principal); J12.82 Pneumonia due to coronavirus disease 2019; J96.01 Acute respiratory failure with hypoxia; U07.1 COVID-19; J44.0 Chronic obstructive pulmonary disease with (acute) lower respiratory infection; Z68.42 Body mass index [BMI] 45.0-49.9, adult; I48.91 Unspecified atrial fibrillation; I25.10 Atherosclerotic heart disease of native coronary artery without angina pectoris; E80.6 Other disorders of bilirubin metabolism; G47.33 Obstructive sleep apnea (adult) (pediatric); E66.01 Morbid (severe) obesity due to excess calories; E83.39 Other disorders of phosphorus metabolism; I12.9 Hypertensive chronic kidney disease with stage 1 through stage 4 chronic kidney disease, or unspecified chronic kidney disease; N18.9 Chronic kidney disease, unspecified; D63.1 Anemia in chronic kidney disease; E88.09 Other disorders of plasma-protein metabolism, not elsewhere classified; T38.0X5A Adverse effect of glucocorticoids and synthetic analogues, initial encounter; Z79.01 Long term (current) use of anticoagulants; Z88.0 Allergy status to penicillin; Z79.82 Long term (current) use of aspirin; Z79.899 Other long term (current) drug therapy; Z79.02 Long term (current) use of antithrombotics/antiplatelets; Z79.51 Long term (current) use of inhaled steroids; Z79.2 Long term (current) use of antibiotics; Z79.811 Long term (current) use of aromatase inhibitors; Z86.718 Personal history of other venous thrombosis and embolism; Z98.890 Other specified postprocedural states; Z95.1 Presence of aortocoronary bypass graft; Z90.49 Acquired absence of other specified parts of digestive tract; Z98.52 Vasectomy status; Z87.891 Personal history of nicotine dependence; Z86.79 Personal history of other diseases of the circulatory system; Z99.81 Dependence on supplemental oxygen
CPT/HCPCS: 0241U; 36415; 71045; 80048; 80053; 80069; 83735; 83880; 84145; 84484; 85025; 85610; 87040; 93005; 93010; 93306; 94640; 94660; 94761; 94762; 96374; 96376; 97110; 97116; 97162; 97530; 99285-25; A9270; C9399; J0248; J1956; J7050; M0222

== ENCOUNTER 2022-07-11 14:25 | Inpatient (IN) | payer OTHER ==
[~2022-07-11] VITALS: Ht 185.4 cm; Wt 147.8 kg
[~2022-07-11 14:25] MED LIST changes: -METO25ER PO; +Q-Tussin100 MG/5 M PO; +Tessalon200 MG PO; +WARF5 PO
[2022-07-11 15:52] LABS: Hematocrit 41.6 % (37.0-53.0); Mean Corpuscular HGB 32.5 pg (26.0-34.0); Mean Corpuscular HGB Conc 33.7 g/dL (31.5-36.5); Mean Corpuscular Volume 97 fL (80-100); Mean Platelet Volume 9.2 fL (9.1-12.4); Platelet Count 434 K/mm3 (150-400); RDW Coefficient Variation 13.9 % (11.7-14.2); RDW Standard Deviation 49.6 fL (35.1-46.3); Red Blood Cell Count 4.31 M/mm3 (4.30-5.90); White Blood Cell Count 22.42 K/mm3 (4.00-11.30)
[2022-07-11 15:58] LABS: Albumin, Blood 3.2 g/dL (3.4-5.0); Albumin/Globulin Ratio 0.8 (0.8-1.8); Bilirubin, Total 1.1 mg/dL (0.1-1.0); Bun/Creatinine Ratio 27.9 (12.0-20.0); Calcium, Blood 8.8 mg/dL (8.5-10.1); Creatinine, Blood 1.4 mg/dL (0.60-1.20); Globulin, Blood 3.8 g/dL (2.2-4.0); Magnesium, Blood 2.6 mg/dL (1.6-2.4); Potassium, Blood 4.4 mmol/L (3.5-5.5)
[2022-07-11 16:16] LABS: BASOPHILS PERCENT MAN 0 % (0-2); EOSINOPHILS PERCENT MAN 0 % (0-6); LYMPHOCYTES ABSOLUTE MAN 3.58 K/mm3 (0.84-5.20); LYMPHOCYTES PERCENT MAN 16 % (21-46); METAMYELOCYTE ABSOLUTE MAN 0.22 K/mm3 (0.00-0.00); METAMYELOCYTE PERCENT MAN 1 % (0-0); MONOCYTES ABSOLUTE MAN 2.01 K/mm3 (0.16-1.47); MONOCYTES PERCENT MAN 9 % (4-13); MYELOCYTE ABSOLUTE MAN 0.67 K/mm3 (0.00-0.00); MYELOCYTE PERCENT MAN 3 % (0-0); NEUTROPHILS ABSOLUTE MAN 15.91 K/mm3 (1.96-9.15); SEG NEUTROPHILS PERCENT MAN 71 % (41-73); TOTAL CELLS COUNTED 100
[2022-07-11 22:31] LABS: International Normalized Ratio 3.68; Prothrombin Time Results 35.5 Sec (9.7-11.5)
--- NOTE | 2022-07-12 03:55 | NUR ---
Hypotension - fluid bolus Pt BP has been falling since arriving to our unit, at 0250 it was 90/51. Called Dr. Hill who was busy placing a line. Discussed with charge, changed rate on NS from 125 to 999, will recheck BP when bag is complete. Awaiting call back from Dr. Hill.
--- NOTE | 2022-07-12 04:47 | NUR ---
HYPOTENSION RESOLVED - MARYANN BP RAN A 500 ML BOLUS PER CHARGE NURSE AND THEN DR. ARCEO. BP MACHINE READ 80/40, TOOK MARYANN BP AND GOT 110/70 WITH HIGH CONFIDENCE. BP MACHINE LIKELY INNACURATE D/T AFIB.
[2022-07-12 05:24] LABS: BASOPHILS ABSOLUTE AUTO 0.04 K/mm3 (0.00-0.23); BASOPHILS PERCENT AUTO 0 % (0-2); EOSINOPHILS ABSOLUTE AUTO 0.08 K/mm3 (0.00-0.68); EOSINOPHILS PERCENT AUTO 1 % (0-6); Hematocrit 36.1 % (37.0-53.0); Hemoglobin 12.2 g/dL (13.5-17.5); IMMATURE GRAN ABSOLUTE AUTO 0.39 K/mm3 (0.00-0.10); IMMATURE GRAN PERCENT AUTO 2 % (0-1); LYMPHOCYTES ABSOLUTE AUTO 2.22 K/mm3 (0.84-5.20); LYMPHOCYTES PERCENT AUTO 13 % (21-46); MONOCYTES ABSOLUTE AUTO 2.45 K/mm3 (0.16-1.47); MONOCYTES PERCENT AUTO 15 % (4-13); Mean Corpuscular HGB 32.4 pg (26.0-34.0); Mean Corpuscular HGB Conc 33.8 g/dL (31.5-36.5); Mean Corpuscular Volume 96 fL (80-100); Mean Platelet Volume 9.1 fL (9.1-12.4); NEUTROPHILS ABSOLUTE AUTO 11.51 K/mm3 (1.96-9.15); NEUTROPHILS PERCENT AUTO 69 % (41-73); Platelet Count 361 K/mm3 (150-400); RDW Coefficient Variation 14.2 % (11.7-14.2); RDW Standard Deviation 50.1 fL (35.1-46.3); Red Blood Cell Count 3.76 M/mm3 (4.30-5.90); White Blood Cell Count 16.69 K/mm3 (4.00-11.30)
[2022-07-12 05:53] LABS: Albumin, Blood 2.5 g/dL (3.4-5.0); Albumin/Globulin Ratio 0.7 (0.8-1.8); Bilirubin, Total 1.3 mg/dL (0.1-1.0); Bun/Creatinine Ratio 24.8 (12.0-20.0); Calcium, Blood 7.9 mg/dL (8.5-10.1); Creatinine, Blood 1.05 mg/dL (0.60-1.20); Globulin, Blood 3.5 g/dL (2.2-4.0); Potassium, Blood 3.9 mmol/L (3.5-5.5)
--- NOTE | 2022-07-12 07:16 | NUR ---
Shift Summary Pt arrived to our unit at approx 2300 with a Dx of hypotension. Rcvd 4L of fluid in the ER to bring BP from systolic 60-70 up to 117. Started pt on NS @ 125 on arrival to medical floor. BP measurments were dropping, called hospitalist and gave a 500 mL bolus of NS. BP machine then gave a measurement of 80/40, did a manual BP and got 110/70 with high confidence. Low BP machine accuracy likely d/t AFIB. PT requested CPAP. he uses one at home, around 0500. Passed this info to day nurse to obtain order. Pt states he is feeling weak, no dizzyness or lightheadedness. Calls appropriatly, continent voids in urinal. No acute events, pleasant and cooperative with care.
--- NOTE | 2022-07-12 12:45 | NUR ---
PARTY CHIEF REPORTS RVR @ 150 FOR 30 SECS
--- NOTE | 2022-07-12 14:35 | NUR ---
PT C/O FOOT PAIN/NUMBNESS "FEELS LIKE IT IS IN A CAST" MEDICATED FOR PAIN PER EMAR, PT UP TO CHAIR FOR IMPROVED CIRCULATION. FOOT IS WARM TO TOUCH, DOES NOT APPEAR RED/SWOLLEN
--- NOTE | 2022-07-12 15:45 | NUR ---
NOTIFIED OF REPEATED RVR PER TELE-MEDS ORDERED
--- NOTE | 2022-07-12 16:16 | NUR ---
DR. SPANGLER CONTACTED INSTRUCTED TO ADMIN BOTH IV AND PO LOPRESSOR TOGETHER
--- NOTE | 2022-07-12 17:10 | NUR ---
SHIFT SUMMARY PT A&OX4 AND IN PLEASENT MOOD T/O SHIFT. UP TO CHAIR MULTIPLE TIMES T/O SHIFT-ROM COMPLETED. PT C/O FOOT DISCOMFORT-MEDICATED PER EMAR. MULT RUNS OF RVR PER [place]-MEDICATED PER DR. NESS. VSS @ THIS TIME. TOLERATING PO INTAKE. CALL LIGHT W/IN REACH. TELE IN PLACE.
[2022-07-13 05:32] LABS: International Normalized Ratio 2.68; Prothrombin Time Results 26.4 Sec (9.7-11.5)
--- NOTE | 2022-07-13 06:30 | NUR ---
SHIFT SUMMARY PATIENT ALERT AND ORIENTED. HAD NO COMPLAINTS OF PAIN OR SHORTNESS OF BREATH. NO ACUTE ISSUES NOTED OVERNIGHT. CALL LIGHT WITHIN REACH. REPORT GIVEN TO ONCOMING RN.
--- NOTE | 2022-07-13 16:48 | NUR ---
SHIFT SUMMARY PT A&OX4 AND IN PLEASENT MOOD T/O SHIFT. RESTING COMFORTABLY IN BED T/O SHIFT. WORKED W/ PHYSICAL THERAPY. TELE IN PLACE. 5MG LOPRESSOR IV FOR TACHYCARDIA. TOLERATING PO INTAKE. OTHOSTATIC VS NEG. CALL LIGHT W/IN REACH. PT VERBALIZED CONCERN ABOUT HAVING A SHEARING SHED HAND AT HOME FOR SAFETY.
[2022-07-14 05:02] LABS: Hematocrit 33.4 % (37.0-53.0); Hemoglobin 11.2 g/dL (13.5-17.5); Mean Corpuscular HGB 31.9 pg (26.0-34.0); Mean Corpuscular HGB Conc 33.5 g/dL (31.5-36.5); Mean Corpuscular Volume 95 fL (80-100); Mean Platelet Volume 9.2 fL (9.1-12.4); Platelet Count 321 K/mm3 (150-400); RDW Standard Deviation 49.4 fL (35.1-46.3); Red Blood Cell Count 3.51 M/mm3 (4.30-5.90); White Blood Cell Count 11.23 K/mm3 (4.00-11.30)
[2022-07-14 05:19] LABS: International Normalized Ratio 2.45; Prothrombin Time Results 24.3 Sec (9.7-11.5)
--- NOTE | 2022-07-14 12:36 | NUR ---
RN NOTE MULTIPLE CALLS FROM ROTARY SURFACE GRINDER THAT HEART RATE HAS BEEN 110 TO 130S TODAY. PT HAS BEEN EITHER RESTING OR WALKING WITH PT, SITTING UP ON THE EDGE OF THE BED DURING THESE PERIODS, BUT DENIES CHEST PAIN. DR ESCALANTE CAME TO BEDSIDE AND AWARE OF ROTARY SURFACE GRINDER NOTIFICATIONS. PT ON CONTINUOUS PULSE OX, ON ROOM AIR, IN THE 90S. NO C/O FOOT PAIN THIS MORNING. BED LOW, CALL LIGHT IN REACH.
--- NOTE | 2022-07-14 16:16 | NUR ---
SHIFT SUMMARY SEE PRIOR NOTE. MR SCHUSTER IS A&OX4. UP WITH PHYSICAL THERAPY TWICE TODAY. HR RATE UP TO 130-140S ON EXERTION. HE DENIED ANY CHEST PAIN. O2 SAT IN THE 90S ON ROOM AIR. HR DOWN TO AROUND 110-115 AT REST. C/O GOUT PAIN HELPED WITH INDOCIN. ROBOTUSSIN DM GIVEN FOR COUGH. BED LOW, CALL LIGHT IN REACH.
--- NOTE | 2022-07-14 16:38 | NUR ---
RN NOTE PT REQUESTED DANIEL CRUZ. DR ESCALANTE INFORMED OF THIS REQUEST AND NOTIFIED OF HR SPIKES WITH EXERCISING TODAY.
[2022-07-15 05:10] LABS: International Normalized Ratio 2.29; Prothrombin Time Results 22.8 Sec (9.7-11.5)
--- NOTE | 2022-07-15 11:26 | NUR ---
RN NOTE MR TERRELL HAS AMBULATED TO THE BATHROOM TODAY, MOVED FROM BED TO CHAIR. HR GOES UP TO 150-160S WITH ACTIVITY, SETTLING DOWN TO 110-130S SOON AFTER RESTING. DR ESCALANTE AWARE ON ROUNDS THIS MORNING. STRONG MOIST COUGH AND SOB WITH ACTIVITY. S/B RT. ABLE TO TALK IN FULL SENTENCES. WORKED WITH PT THIS AM. C/O GOUT PAIN, CONTROLLED WITH INDOCIN. CALL LIGHT IN REACH.
--- NOTE | 2022-07-15 17:06 | NUR ---
SHIFT SUMMARY MR TERRELL HAS BEEN AMBULATING MORE IN HIS ROOM/BATHROOM TODAY WITH WALKER. O2 SATS 90S. HR ESCALATES WITH EXERCISE. PIPE LINE WALKER SAID THERE HAVE GENERALLY BEEN LESS HR SPIKES THIS AFTERNOON SINCE METOPROLOL DOSE INCREASE THIS MORNING BUT THERE WAS ONE RECENT SPIKE IN HR TO 170 FOR 4 SECONDS. BP 99/71. PT SAID HE WAS SLEEPING AT THE TIME OF 170. DR ESCALANTE CALLED AND NOTIFIED, NO CHANGE TO CARE AT THIS TIME. BED LOW, CALL LIGHT IN REACH.
[2022-07-16 06:16] LABS: International Normalized Ratio 2.74; Prothrombin Time Results 26.9 Sec (9.7-11.5)
--- NOTE | 2022-07-16 07:29 | NUR ---
A/OX4; CALM AND COOPERATIVE. [place]. SBA TO BR. DENIES PAIN. CPAP ON ROOM AIR OVERNIGHT. TELE: A-FIB WITH HR HIGH 150 (APPROX 0100), AVERAGE HR 80s-90s PER [employer] BOAT CREWMAN. BRIEF UPDATE ON PATIENT STATUS GIVEN TO SPOUSE OVER THE PHONE. SLEEP PROMOTED. CALL LIGHT IN REACH, ENCOURAGED TO MAKE NEEDS KNOWN. BED ALARM SET (CALLS APPROPRIATELY).
--- NOTE | 2022-07-16 09:33 | NUR ---
JAVIER LAUREN. 6 BEATS VT CALLED FROM [employer]. PT ASYMTOMATIC AT THE TIME, SITTING UP IN THE CHAIR. NO C/O PAIN. DR ESCALANTE NOTIFIED.
--- NOTE | 2022-07-16 11:02 | NUR ---
RN NOTE MR SCHUSTER DENIES PAIN THIS AM. CONTINUES TO HAVE STRONG COUGH. SOME SOB ON EXERTION. ON TELE, AFIB, LESS CALLS FROM DEPUTY PROGRAM MANAGER THIS AM. PT ENCOURAGED BY DR ESCALANTE TO INCREASE HIS ACTIVITY TODAY. HE HAS BEEN WALKING TO THE BATHROOM AND AROUND ROOM WITH WALKER, CALLS FOR STANDBY ASSISTANCE APPROPRIATELY.
--- NOTE | 2022-07-16 19:52 | NUR ---
SHIFT SUMMARY MR TERRELL HAS MOVED AROUND THE ROOM, INTO THE BATHROOM, TOOK A SHOWER. STEADY GAIT WITH FWWALKER AND STAND BY ASSISTANCE. NO C/O PAIN TODAY. TELE IN AFIB, ONLY ONE CALL FROM [employer] THIS MORNING FOR 6 BEATS OF [place], DURING WHICH HE WAS ASYMPTOMATIC. HE SAID HE'S FEELING BETTER AND FEELS LIKE HE'S MOVING CLOSER TO BEING READY TO GO HOME. HIS CALLED AND WAS UPDATED. BED LOW, CALL LIGHT IN REACH.
--- NOTE | 2022-07-17 04:31 | NUR ---
SHIFT SUMMARY: Pt A/Ox4 and call light appropriate. He denies pain, SOB, nausea, dizziness. He does state he has some pain in his feet and numbness. Overnight he remained on RA, CPAP utilzed at night. Recieved no Tele calls overnight. He is still running afib. Blood pressures have been stable. Pt is hopeful to go home today.
[2022-07-17 05:08] LABS: Hematocrit 32.2 % (37.0-53.0); Hemoglobin 10.5 g/dL (13.5-17.5); Mean Corpuscular HGB Conc 32.6 g/dL (31.5-36.5); Mean Corpuscular Volume 98 fL (80-100); Platelet Count 317 K/mm3 (150-400); RDW Coefficient Variation 14.1 % (11.7-14.2); RDW Standard Deviation 51.2 fL (35.1-46.3); Red Blood Cell Count 3.28 M/mm3 (4.30-5.90); White Blood Cell Count 9.87 K/mm3 (4.00-11.30)
[2022-07-17 05:23] LABS: International Normalized Ratio 3.1; Prothrombin Time Results 30.2 Sec (9.7-11.5)
[2022-07-17 05:36] LABS: Albumin, Blood 2.6 g/dL (3.4-5.0); Anion Gap 6 mmol/L (6-16); Blood Urea Nitrogen 15 mg/dL (8-24); Bun/Creatinine Ratio 13.6 (12.0-20.0); CO2, Blood 25 mmol/L (21-32); Calcium, Blood 8.7 mg/dL (8.5-10.1); Chloride, Blood 109 mmol/L (98-108); Glomerular Filtration Rate 70 (60-); Glucose, Blood 95 mg/dL (70-99); Magnesium, Blood 1.9 mg/dL (1.6-2.4); Potassium, Blood 4.5 mmol/L (3.5-5.5); Sodium, Blood 140 mmol/L (136-145)
--- NOTE | 2022-07-17 13:17 | NUR ---
SHIFT SUMMARY/DISCHARGE A&OX4, COOPERATIVE WITH CARE. PT ON TELE, CURRENTLY AFIB 104, NO EVENTS PER [employer] TECH. SLIGHT SOB WITH EXERTION. AMBULATED WELL WITH PT EARLY THIS SHIFT. LBM LAST NIGHT. PATIENT VERBALIZES READINESS TO DISCHARGE HOME TODAY. BP STABLE DURING THIS SHIFT. HR INCREASED TO 160'S DURING PT, BUT DECREASED TO LOW 100'S SHORTLY AFTER THERAPY. PATIENT DENIES PAIN AT THIS TIME. REVIEWED DC PACKET, MEDICATIONS, AND EDUCATION. PT DENIES ANY QUESTIONS OR CONCERNS AT THIS TIME. PLANS TO DISCHARGE AROUND 1430 WHEN PT'S NIECE ARRIVES.
== END 2022-07-17 15:02 | disposition home health service (06) | DRG 315 ==
LOC: ER 14:25 → MEDS 22:36 → ER 22:36 → MEDS 22:59
PROVIDERS: Emergency Medicine; Internal Medicine; ADMIT Internal Medicine
DX: I95.9 Hypotension, unspecified (principal); E87.1 Hypo-osmolality and hyponatremia; N17.9 Acute kidney failure, unspecified; J44.1 Chronic obstructive pulmonary disease with (acute) exacerbation; I48.20 Chronic atrial fibrillation, unspecified; I25.10 Atherosclerotic heart disease of native coronary artery without angina pectoris; J44.9 Chronic obstructive pulmonary disease, unspecified; E86.1 Hypovolemia; I10 Essential (primary) hypertension; Z90.49 Acquired absence of other specified parts of digestive tract; Z98.890 Other specified postprocedural states; Z98.52 Vasectomy status; Z87.891 Personal history of nicotine dependence
CPT/HCPCS: 36415; 71045; 74160; 80053; 80069; 83605; 83690; 83735; 83880; 84484; 85025; 85027; 85610; 93005; 93010; 94640; 94660; 94664; 94760; 94762; 96360-59; 97110; 97116; 97161; 97530; 97530-CQ; 99285-25; A9270; J7030; J7120; Q9967

== ENCOUNTER 2022-11-14 09:31 | Day surgery (SDC) | payer OTHER ==
[~2022-11-14] VITALS: Ht 185.4 cm; Wt 160.3 kg
[2022-11-14] MEDS ORDERED: METO50ER PO (10:29)
[2022-11-14] MEDS ORDERED: TRAZ50 PO (10:33)
[2022-11-14] MEDS ORDERED: TORS10 PO (10:34)
[2022-11-14] MEDS ORDERED: Prinivil10 MG PO (10:35)
--- NOTE | 2022-11-14 10:54 | NUR ---
11/14/22 [address]abb[address]ae Vasquez CONSULT[address] FAUST D/T CONGESTED LUNG SOUNDS, NO ORDERS GIVEN, PER DR FAUST OK TO PROCEED
[2022-11-14 11:52] VITALS: BP 140/69
--- NOTE | 2022-11-14 12:34 | NUR ---
11/14/22 1234 Jose Easton PT'S HEART RATE WAS IRREGULAR IN STEP DOWN. PT STATES THIS IS NORMAL FOR HIM. HE HAS DOCUMENTED HISTORY OF ATRIAL FIBRILATION. HE DENIED CARDIAC SYMPTOMS INCLUDING CHEST PAIN, DIZZINESS, OR SHORTNESS OF BREATH. HE WAS INSTRUCTED TO RESUME METOPROLOL AND COUMADIN DIRECTED.
== END 2022-11-14 12:20 | disposition home or self-care (01) ==
LOC: ORSCSDS 09:31
PROVIDERS: Student in an Organized Health Care Education/Training Program
PROC: 08DK3ZZ Extraction of Left Lens, Percutaneous Approach (ICD-10-PCS; principal; 2022-11-14 11:00)
DX: H25.13 Age-related nuclear cataract, bilateral (principal); G47.33 Obstructive sleep apnea (adult) (pediatric); R06.02 Shortness of breath; E66.01 Morbid (severe) obesity due to excess calories; Z68.42 Body mass index [BMI] 45.0-49.9, adult; J44.9 Chronic obstructive pulmonary disease, unspecified; Z79.01 Long term (current) use of anticoagulants; Z79.899 Other long term (current) drug therapy
CPT/HCPCS: J2001; J2250; J3010; J7040; V2632

== ENCOUNTER 2022-11-28 09:38 | Day surgery (SDC) | payer OTHER ==
[~2022-11-28] VITALS: Ht 185.4 cm; Wt 159.8 kg
[~2022-11-28 09:38] MED LIST changes: +TORS10 PO
--- NOTE | 2022-11-28 10:49 | NUR ---
11/28/22 1049 Paul Tran CALL LIGHT WITHIN REACH. TETRACAINE IN RIGHT EYE AT 1043 AND PLEDGETT IN AT 1044
[2022-11-28 12:29] VITALS: BP 136/60
== END 2022-11-28 12:25 | disposition home or self-care (01) ==
LOC: ORSCSDS 09:38
PROVIDERS: Student in an Organized Health Care Education/Training Program
PROC: 08DJ3ZZ Extraction of Right Lens, Percutaneous Approach (ICD-10-PCS; principal; 2022-11-28 11:00)
DX: H25.11 Age-related nuclear cataract, right eye (principal); Z96.1 Presence of intraocular lens; Z87.891 Personal history of nicotine dependence; I25.10 Atherosclerotic heart disease of native coronary artery without angina pectoris; I48.91 Unspecified atrial fibrillation; E78.00 Pure hypercholesterolemia, unspecified; I25.2 Old myocardial infarction; R06.02 Shortness of breath; G47.33 Obstructive sleep apnea (adult) (pediatric); E66.9 Obesity, unspecified; Z68.42 Body mass index [BMI] 45.0-49.9, adult; Z79.01 Long term (current) use of anticoagulants; Z79.899 Other long term (current) drug therapy
CPT/HCPCS: J2001; J2250; J3010; J7040; V2632

== ENCOUNTER → 2023-08-14 | Outpatient (CLI) | payer OTHER ==
[2023-08-18 03:52] LABS: VARICELLA-ZOSTER VIRUS BY PCR Detected; VARICELLA-ZOSTER VIRUS SOURCE SWAB
== END ==
LOC: LAB SHORT 17:15 → LAB 17:15
PROVIDERS: Physician Assistant
DX: L08.9 Local infection of the skin and subcutaneous tissue, unspecified (principal); B02.9 Zoster without complications; R20.2 Paresthesia of skin
CPT/HCPCS: 87070; 87077; 87147; 87186; 87205; 87798